=== PATIENT | male | born 1960 | race Caucasian/White ===

== ENCOUNTER 2017-06-21 11:55 | Emergency (ER) | payer MEDICARE, SELFPAY ==
[2017-06-21 12:12] VITALS: BP 157/82; PULSE 68; RESP 22; TEMP 37.3; O2SAT 99; BMI 30.4
--- NOTE | 2017-06-21 12:12 | XR_ITS ---
XR knee RT 3V Ordering Physician: Natali Shepard MD Patient Age: 57 years: Male HISTORY: ITS.REASON: SWOLLEN AND PAINFUL TECHNIQUE: 3 views right knee COMPARISON :None available FINDINGS . No fracture nor dislocation. Bones well mineralized. Scant joint effusion suprapatella bursa. Also suggestion swelling anterior to the patella and patellar tendon. Clinical correlation required. Is evident trauma here? There also appears to be some soft tissue swelling at the insertion of the quadriceps tendon onto the patella.. Is a focal tenderness here? Slight sharpening joint margins but may reflects very subtle early degenerative changes. As does the borderline joint space narrowing at the medial compartment on this nonweightbearing film. Bones well mineralized. IMPRESSION: 1.. No fracture nor dislocation. 2. Is suggestion soft tissue swelling overlying the patella & patellar tendon. Swelling and thickening suggested at the region of quadriceps tendon insertion and superior patella... .. Is a focal tenderness here? Is there history recent trauma?. (If there is focal pain at quadriceps tendon insertion upon patella, orthopedic follow-up with consideration MR a would be important) . 3. Only Scant joint effusion 4. Only scant barely appreciable early degenerative changes knee
[2017-06-21 12:35] VITALS: BP 147/77; PULSE 61; RESP 16; TEMP 37.2; O2SAT 96; BMI 30.4
--- NOTE | 2017-06-21 13:36 | HMH.EDGENADL ---
ED Disposition Clinical Impression: DJD (degenerative joint disease) of knee, Knee effusion, right Disposition: Home, Self-Care Condition on Discharge: Good Additional Instructions: 1- rest. 2- ice. 3- elevation. 4- immobilizer. 5- OTC NSAID 6- See Dr Angeles in AM Referrals: Brandon Angeles MD [Staff Physician] - - Critical Care Critical Care Time: No Attestation: On 06/21/17, the high probability of a clinically significant, sudden or life threatening deterioration of the following system(s) required my full and direct attention, intervention and personal management. The time I documented below is in addition to time spent performing reported procedures but includes the following listed in this critical care notation. Medical Decision Making - Medical Records Medical records reviewed: Yes: I reviewed the patient's medical records. Vital Signs: 06/21/17 12:12 06/21/17 12:35 Temperature 99.1 F 99 F Temperature Source Oral Oral Pulse Rate [Right Brachial] 68 61 Respiratory Rate 22 16 Blood Pressure [Right Arm] 157/82 147/77 Blood Pressure Mean [Right Arm] 107 100 Blood Pressure Source [Right Arm] Automatic Cuff Automatic Cuff Blood Pressure Position [Right Arm] Sitting Supine 02 Sat by Pulse Oximetry 99 96 Oxygen Delivery Method Room Air Room Air - Lab Data Lab Results 06/21/17 14:30: WBC 9.4, RBC 5.17, Hgb 15.3, Hct 45.1, MCV 87.2, MCH 29.7, MCHC 34.0, RDW 12.7, Plt Count 178, MPV 8.7, Neut % (Auto) 71.8, Lymph % (Auto) 19.2, [place] % (Auto) 6.5, Eos % (Auto) 1.7, Baso % (Auto) 0.6, Neut # (Auto) 6.8, Lymph # (Auto) 1.8, [place] # (Auto) 0.6, Eos # (Auto) 0.2, Baso # (Auto) 0.1, ESR 12 06/21/17 14:30: Sodium 139, Potassium 3.8, Chloride 105, Carbon Dioxide 28, Anion Gap 9.8, BUN 10, Creatinine 0.85, Estimated Creat Clear 116, Estimated GFR 93, Est GFR ( Amer) 112, Glucose 93, Uric Acid 6.7, Calcium 8.5, Total Bilirubin 0.5, AST 47 H, ALT 140 H, Alkaline Phosphatase 72, C-Reactive Protein 2.5 H, Total Protein 7.0, Albumin 3.9, Globulin 3.1, Albumin/Globulin Ratio 1.3 Result diagrams: 06/21/17 14:30 06/21/17 14:30 - Radiology Data #1 Image(s): Knee Image Reviewed: Yes I reviewed the patient's radiology image, Yes I have reviewed radiologist's interpretation Preliminary Findings: Abnormal MPRESSION: 1.. No fracture nor dislocation. 2. Is suggestion soft tissue swelling overlying the patella & patellar tendon. Swelling and thickening suggested at the region of quadriceps tendon insertion and superior patella... .. Is a focal tenderness here? Is there history recent trauma?. (If there is focal pain at quadriceps tendon insertion upon patella, orthopedic follow-up with consideration MR a would be important) . 3. Only Scant joint effusion 4. Only scant barely appreciable early degenerative changes knee - Chuck Inquiry Pt receiving controlled substance: No Chuck was queried for this patient: No Medical Decision Making Narrative: I did review the x-ray report below with the patient. MPRESSION: 1.. No fracture nor dislocation. 2. Is suggestion soft tissue swelling overlying the patella & patellar tendon. Swelling and thickening suggested at the region of quadriceps tendon insertion and superior patella... .. Is a focal tenderness here? Is there history recent trauma?. (If there is focal pain at quadriceps tendon insertion upon patella, orthopedic follow-up with consideration MR a would be important) . 3. Only Scant joint effusion 4. Only scant barely appreciable early degenerative changes knee I did review the x-ray report and the labs with the patient and his . He has no signs of infection or uric acid on his lab work. I called Dr. Angeles the orthopedic who recommended symptomatic treatment immobilization and follow-up in office in the morning General Adult HPI - General Chief complaint: PAIN Stated c
--- NOTE | 2017-06-21 13:42 | ED_ITS ---
ED Disposition Clinical Impression: DJD (degenerative joint disease) of knee, Knee effusion, right Disposition: Home, Self-Care Condition on Discharge: Good Additional Instructions: 1- rest. 2- ice. 3- elevation. 4- immobilizer. 5- OTC NSAID 6- See Dr Angeles in AM Referrals: Brandon Angeles MD [Staff Physician] - - Critical Care Critical Care Time: No Attestation: On 06/21/17, the high probability of a clinically significant, sudden or life threatening deterioration of the following system(s) required my full and direct attention, intervention and personal management. The time I documented below is in addition to time spent performing reported procedures but includes the following listed in this critical care notation. Medical Decision Making - Medical Records Medical records reviewed: Yes: I reviewed the patient's medical records. Vital Signs: 06/21/17 12:12 06/21/17 12:35 Temperature 99.1 F 99 F Temperature Source Oral Oral Pulse Rate [Right Brachial] 68 61 Respiratory Rate 22 16 Blood Pressure [Right Arm] 157/82 147/77 Blood Pressure Mean [Right Arm] 107 100 Blood Pressure Source [Right Arm] Automatic Cuff Automatic Cuff Blood Pressure Position [Right Arm] Sitting Supine 02 Sat by Pulse Oximetry 99 96 Oxygen Delivery Method Room Air Room Air - Lab Data Lab Results 06/21/17 14:30: WBC 9.4, RBC 5.17, Hgb 15.3, Hct 45.1, MCV 87.2, MCH 29.7, MCHC 34.0, RDW 12.7, Plt Count 178, MPV 8.7, Neut % (Auto) 71.8, Lymph % (Auto) 19.2 , [place] % (Auto) 6.5, Eos % (Auto) 1.7, Baso % (Auto) 0.6, Neut # (Auto) 6.8, Lymph # (Auto) 1.8, [place] # (Auto) 0.6, Eos # (Auto) 0.2, Baso # (Auto) 0.1, ESR 12 06/21/17 14:30: Sodium 139, Potassium 3.8, Chloride 105, Carbon Dioxide 28, Anion Gap 9.8, BUN 10, Creatinine 0.85, Estimated Creat Clear 116, Estimated GFR 93, Est GFR ( Amer) 112, Glucose 93, Uric Acid 6.7, Calcium 8.5, Total Bilirubin 0.5, AST 47 H, ALT 140 H, Alkaline Phosphatase 72, C-Reactive Protein 2.5 H, Total Protein 7.0, Albumin 3.9, Globulin 3.1, Albumin/Globulin Ratio 1.3 Result diagrams: 06/21/17 14:30 06/21/17 14:30 - Radiology Data #1 Image(s): Knee Image Reviewed: Yes I reviewed the patient's radiology image, Yes I have reviewed radiologist's interpretation Preliminary Findings: Abnormal MPRESSION: 1.. No fracture nor dislocation. 2. Is suggestion soft tissue swelling overlying the patella & patellar tendon. Swelling and thickening suggested at the region of quadriceps tendon insertion and superior patella... .. Is a focal tenderness here? Is there history recent trauma?. (If there is focal pain at quadriceps tendon insertion upon patella, orthopedic follow-up with consideration MR a would be important) . 3. Only Scant joint effusion 4. Only scant barely appreciable early degenerative changes knee - Chuck Inquiry Pt receiving controlled substance: No Chuck was queried for this patient: No Medical Decision Making Narrative: I did review the x-ray report below with the patient. MPRESSION: 1.. No fracture nor dislocation. 2. Is suggestion soft tissue swelling overlying the patella & patellar tendon. Swelling and thickening suggested at the region of quadriceps tendon insertion and superior patella... .. Is a focal tenderness here? Is there history recent trauma?. (If there is focal pain at puneet
[2017-06-21 14:44] LABS: Basophils # 0.1 K/mm3 (0-0.2); Basophils % 0.6 % (0.1-2.0); Eosinophils # 0.2 K/mm3 (0.0-0.4); Eosinophils % 1.7 % (0.1-12.0); Hematocrit 45.1 % (42.0-52.0); Hemoglobin 15.3 g/dL (14.1-18.0); Lymphocytes # 1.8 K/mm3 (0.7-4.5); Lymphocytes % 19.2 K/mm3 (10-50); Mean Corpuscular Hemoglobin 29.7 pg (27.0-31.2); Mean Corpuscular Volume 87.2 fl (80-94); Mean Platelet Volume 8.7 fl (7.4-10.4); Monocytes # 0.6 K/mm3 (0.1-1.0); Monocytes % 6.5 % (1.7-9.3); Neutrophils # 6.8 K/mm3 (1.8-7.8); Neutrophils % 71.8 % (37.0-80.0); Platelet Count 178 K/mm3 (142-424); Red Blood Count 5.17 M/mm3 (4.60-6.20); Red Cell Distribution Width 12.7 % (11.5-17.5); White Blood Count 9.4 K/mm3 (4.8-10.8)
[2017-06-21 14:52] LABS: Alanine Aminotransferase 140 U/L (12-78); Albumin Level 3.9 gm/dL (3.4-5.0); Albumin/Globulin Ratio 1.3 (1.1-1.8); Alkaline Phosphatase 72 U/L (46-116); Anion Gap 9.8 mEq/L (5-15); Aspartate Amino Transferase 47 U/L (15-37); Bilirubin,Total 0.5 mg/dL (0.2-1.0); Blood Urea Nitrogen 10 mg/dL (7-18); C-Reactive Protein 2.5 mg/L (0.0-0.9); Calcium 8.5 mg/dL (8.5-10.1); Carbon Dioxide 28 mmol/L (21.0-32.0); Chloride 105 mmol/L (98-107); Creatinine Clearance Estimated 116 mL/min (0-300); Creatinine,Serum 0.85 mg/dL (0.70-1.30); Estimated Glomerular Filt Rate 93 ml/min (>60); GFR (African American) 112 ML/MIN (>60); Globulin 3.1 gm/dl (1.3-3.2); Glucose 93 mg/dL (74-106); Potassium 3.8 mmoL/L (3.5-5.1); Sodium 139 mmol/L (136-145); Uric Acid 6.7 mg/dL (2.6-7.2)
[2017-06-21 15:28] LABS: Erythrocyte Sedimentation Rate 12 mm/hr (0-20)
[2017-06-21 16:40] VITALS: BP 130/97; PULSE 77; RESP 18; TEMP 37; O2SAT 96
== END 2017-06-21 16:35 | disposition home or self-care (01) ==
LOC: UTC 12:02 → ER 12:21
PROVIDERS: Emergency Provider Emergency Medicine
DX: M17.11 Unilateral primary osteoarthritis, right knee (principal); Z89.212 Acquired absence of left upper limb below elbow; Z79.899 Other long term (current) drug therapy
CPT/HCPCS: 73562; 80053; 84550; 85025; 85651; 86140; 99284

== ENCOUNTER → 2018-07-29 14:09 | Outpatient (CLI) | payer MEDICARE, SELFPAY ==
--- NOTE | 2018-07-29 14:13 | MR_ITS ---
MR shoulder RT wo con COMPARISON: None HISTORY: Right shoulder pain with limited range of motion. Worsening pain ORDERING PHYSICIAN: Constance Estevez PATIENT AGE: 58 years TECHNIQUE: Routine multiplanar multiecho sequences are performed without contrast. FINDINGS: R hypertrophic changes of the acromioclavicular joint with mild hypertrophy along the inferior aspect of the acromion. There is thickening of the supraspinatus tendon with increased T2 signal with focal full-thickness tear of the distal aspect of the supraspinatus tendon. There does appear to be be some intact fibers anteriorly. Subarticular cystic changes are present at the greater tuberosity at the insertion of the supraspinatus tendon. There is edema also the greater tuberosity in this region. The bicipital tendon is in place. No obvious labral tear. The subscapularis and teres minor tendons are intact. No significant effusion. IMPRESSION: 1. Tendinopathy/tendinosis of the supraspinatus tendon with a full-thickness tear distally. The supraspinatus muscle and tendon are not retracted. There does appear to be some intact fibers professionally and anteriorly. 2. Acromioclavicular hypertrophy with impingement upon the musculotendinous junction of the supraspinatus. 3. Subarticular cystic changes of the greater tuberosity with bone marrow edema of the greater tuberosity.
== END ==
PROVIDERS: PCP Nurse Practitioner Family; Visit Provider Nurse Practitioner Family
DX: M25.511 Pain in right shoulder (principal)
CPT/HCPCS: 73221

== ENCOUNTER 2023-07-09 08:31 | Emergency (ER) | payer MEDICARE, MEDICAID, SELFPAY ==
[2023-07-09 08:55] VITALS: BP 125/76; PULSE 103; RESP 19; TEMP 37.6; O2SAT 99; BMI 27.6
[2023-07-09 09:10] LABS: UTC Influenza A Antigen Negative (Negative); UTC Influenza B Antigen Negative (Negative)
--- NOTE | 2023-07-09 09:16 | ED_ITS ---
Discharge Plan Disposition Patient Disposition: Home, Self-Care Condition: Good Prescriptions Prescriptions: New azithromycin [Zithromax Z-Ramesh] 250 mg tablet See Rx Instructions .ROUTE .COMPLEX 5 Days Qty: 6 0RF Rx Instructions: For 250 mg dose pack: take 500 mg today (day 1), then 250 mg for 4 days (days 2-5) benzonatate 100 mg capsule 100 mg PO TID PRN (Reason: cough) Qty: 20 0RF methylprednisolone [Medrol (Ramesh)] 4 mg tablets,dose pack See Rx Instructions .Route .COMPLEX 6 Days Qty: 21 0RF Rx Instructions: taper pack; guaifenesin [Mucinex] 600 mg tablet extended release 12hr 1,200 mg PO BID PRN (Reason: cough) Qty: 20 0RF No Action colchicine 0.6 mg tablet See Rx Instructions .ROUTE .COMPLEX Patient Comments: TAKE 2 TABLETS BY MOUTH INITIALLY, THEN TAKE 1 TABLET IN AN HOUR. Rx Instructions: TAKE 2 TABLETS BY MOUTH INITIALLY, THEN TAKE 1 TABLET IN AN HOUR. ondansetron 4 mg tablet,disintegrating See Rx Instructions .ROUTE .COMPLEX Patient Comments: Place 2 tablets twice a day by translingual route as needed, for nausea. Rx Instructions: Place 2 tablets twice a day by translingual route as needed, for nausea. Referrals Follow up/Referrals: Constance Estevez [Primary Care Provider] - See instructions Activity Restrictions/Add. Instructions Additional Instructions/Restrictions: * Start antibiotic today. Be sure to complete entire prescription even if feeling better * Monitor temp. Tylenol every 4 hours as needed and / or ibuprofen every 6 hours as needed ( As long as your primary care physician has told you that it ok to take both. For fever/aches/pains ER if no less than 101 despite Tylenol or Motrin * Humidifier/vaporizer or hot steamy shower * Mucinex during the day for your cough and cough suppressant only at night. Be sure to drink lots of water. *Tessalon Perles will not cause drowsiness but use at bedtime to help stop cough so that you may get some rest. *Start steroid today. Helps with inflammation therefore, cough and wheezing. Follow directions on the package. Reviewed side effects. Patient reports taking them before. Drink extra fluids with and between meals. If you have difficulty drinking, try very small amounts of water or suck on ice chips. ? Avoid fruit juices, as these do not replace minerals and can actually increase diarrhea. ? Children and adults can use sports drinks to replenish electrolytes. Younger children and infants should use products formulated for children, like oral rehydration solutions. ? Eat food in small amounts and let your stomach recover. ? Get lots of rest. You may feel tired or weak. ? No greasy or fried foods for the next 24-48 hours BRAT diet Bananas Rice Apples and [place] ? Make sure to drink plenty of liquids ? Return if needed ? Straight to ER if any life threatening symptoms ? Zofran as prescribed ? You was given an outpatient order for diarrhea panel, please collect specimen and bring back to outpatient lab then call back to the [facility] or follow up with family doctor for results ? Follow up with family doctor in the next 48-72 hours if no improvement or any worsening of symptoms Follow up IMMEDIATELY for new or worsening of symptoms OR no noticeable improvement over the next 48-72 hours. 911 immediately for any life threatening symptoms such as chest pain or difficulty breathing Clinical Impressions Clinical Impression: Bronchitis Sinusitis Qualifiers: Sinusitis location: unspecified location Chronicity: unspecified Qualified Code(s): J32.9 - Chronic sinusitis, unspecified Instructions Patient Instructions: Diarrhea, Acute Bronchitis, DI for Sinusitis Discharge ED Provider: Anika Lopez [facility] [place] HPI General Stated complaint: cough diarrhea congestion Mode of Arrival: Ambulatory Source of Information: Patient Limitations: No Limitations Time Seen by Provider: 07/09/23 09:16 Description of Symptoms (Recalled from Triage Doc. by RN): Pt's symptoms are chest congestion, diarrhea, cough, and stomach cramps. HEENT Symptoms (Recalled from RN notes): Yes Resp Symptoms (Recalled from RN notes): No Skin Symptoms (Recalled from RN notes): No MS Symptoms (Recalled from RN notes): No Functional Status (Recalled from RN notes): n/a History of Present Illness Provider Complaint: Patient states that he has been having cough, scratchy throat and chest congestion for about a week States earlier in the week he started with diarrhea and seen his PCP and she thought he may have Norovirus But he has continued to have chest congestion and cough and was worried if he didnt get something for it it would get worse Related Data Home Medications Medication Instructions Recorded Confirmed colchicine 0.6 mg tablet See Rx Instructions .Route .COMPLEX 07/09/23 07/09/23 ondansetron 4 mg disintegrating See Rx Instructions .Route .COMPLEX 07/09/23 07/09/23 tablet Previous Rx's Medication Instructions Recorded azithromycin 250 mg tablet See Rx Instructions PO .COMPLEX 5 07/09/23 (Zithromax Z-Ramesh) days #6 tabs benzonatate 100 mg capsule 100 mg PO TID PRN cough #20 caps 07/09/23 guaifenesin 600 mg tablet, 1,200 mg PO BID PRN cough #20 tabs 07/09/23 extended release 12 hr (Mucinex) methylprednisolone 4 mg tablets in See Rx Instructions .Route 07/09/23 a dose pack (Medrol (Ramesh)) .COMPLEX 6 days #21 tabs Allergies Allergy/AdvReac Type Severity Reaction Status Date / Time No Known Allergies Allergy Verified 07/09/23 09:03 Worker's Comp Is this a Worker's Comp case?: No [facility] Disclaimer: The information contained in this section may have been updated after the patient was seen, as this information can be updated by other users. Social History Smoking Status: Never smoker alcohol intake: never current occupational status: employed Travel in the last 8 weeks: None ROS Obtained: Yes All systems reviewed & no additional complaints except as documented and Yes Systems reviewed as appropriate & no additional complaints except as documented Constitutional Constitutional: Reports system reviewed and no additional complaints, except as documented, Reports as per HPI, Reports body ache and Denies chills ENT Ears, Nose, Mouth, and Throat: Reports system reviewed and no additional complaints, except as documented, Reports as per HPI, Reports nasal congestion and Reports sinus pressure Cardiovascular Cardiovascular: Reports system reviewed and no additional complaints, except as documented and Reports as per HPI Respiratory Respiratory: Reports system reviewed and no additional complaints, except as documented, Reports as per HPI, Reports chest congestion, Reports cough and Reports other (at times coughing up some drainage) Gastrointestinal Gastrointestingal: Reports system reviewed and no additional complaints, except as documented, as per HPI, cramping and diarrhea Physical Exam General General appearance: alert and in no apparent distress ENT ENT exam: Present mucous membranes moist Expanded ENT Exam Throat exam: Present other (Pharyngeal erythema noted with PND) Respiratory Respiratory exam: Present normal lung sounds bilaterally; Absent respiratory distress or wheezes Cardiovascular Cardiovascular exam: Present regular rate, normal rhythm and normal heart sounds Abdominal Exam Abdominal exam: Present soft and normal bowel sounds; Absent distention or tenderness Neurological Exam Neurological exam: Present alert, oriented X3 and normal gait Medical Decision Making Chuck Inquiry Pt receiving controlled substance: No Chuck was queried for this patient: No Vital Signs: 07/09/23 08:55 Temperature 99.7 F H Temperature Source Oral Pulse Rate [Right Radial] 103 H Respiratory Rate 19 Blood Pressure [Right Arm] 125/76 Blood Pressure Mean [Right Arm] 92 Blood Pressure Source [Right Arm] Automatic Cuff Blood Pressure Position [Right Arm] Sitting 02 Sat by Pulse Oximetry 99 Oxygen Delivery Method Room Air Lab Data Lab results reviewed: Yes I reviewed the patient's lab results. Lab Results 07/09/23 09:00: Influenza Type A Ag Negative, Influenza Type B Ag Negative
[2023-07-09 09:39] VITALS: BP 125/76; PULSE 103; RESP 19; TEMP 37.6; O2SAT 99
[2023-07-09 09:44] LABS: Adenovirus F 40/41, stool Not Detected (NotDetected); Astrovirus Not Detected (NotDetected); Campylobacter Not Detected (NotDetected); Clostridium Difficile A/B, PCR Not Detected (NotDetected); Cryptosporidium Not Detected (NotDetected); Cyclospora Cayetanesis Not Detected (NotDetected); Entamoeba histolytica Not Detected (NotDetected); Enteroaggregative E coli Not Detected (NotDetected); Enteropathogenic E coli Not Detected (NotDetected); Enterotoxigenic E coli Not Detected (NotDetected); Giardia lamblia Not Detected (NotDetected); Norovirus Not Detected (NotDetected); Plesimonas Shigalloides, PCR Not Detected (NotDetected); Rotavirus A Not Detected (NotDetected); Sapovirus Not Detected (NotDetected); Shiga-like toxin E coli Not Detected (NotDetected); Shigella Enterovasive E coli Not Detected (NotDetected); Vibrio Cholerae Not Detected (NotDetected); Vibrio, PCR Not Detected (NotDetected); Yersinia Entercolitica, PCR Not Detected (NotDetected)
[2023-07-14 10:49] LABS: Salmonella, PCR Detected (NotDetected)
== END 2023-07-09 09:39 | disposition home or self-care (01) ==
PROVIDERS: Emergency Provider Nurse Practitioner; PCP Nurse Practitioner Family
DX: J40 Bronchitis, not specified as acute or chronic (principal); J32.9 Chronic sinusitis, unspecified; R19.7 Diarrhea, unspecified; R05.9 Cough, unspecified; R10.84 Generalized abdominal pain
CPT/HCPCS: 87507; 87804; 99204; 99212; G0463

== ENCOUNTER 2024-07-13 10:38 | Day surgery (SDC) | payer MEDICARE, MEDICAID, SELFPAY ==
[2024-07-12 12:33] VITALS: BMI 28.2
[2024-07-13 10:54] VITALS: BP 150/83; PULSE 69; RESP 18; TEMP 36.6; O2SAT 96
[2024-07-13] MEDS: LACTATED RINGERS 1000ML 1,000 ML 50 ML IV (11:06)
--- NOTE | 2024-07-13 11:10 | EXP.ANES.CKL ---
[facility] Disclaimer: The information contained in this section may have been updated after the patient was seen, as this information can be updated by other users. Medical History Hand amputee Surgical History Hx of appendectomy Social History Smoking Status: Never smoker alcohol intake: never substance use type: denies use current occupational status: employed Travel in the last 8 weeks: None [facility] Anesthesia Checklist Patient Identification Patient Identification: Arm Band Structural Data Admitted From: Home Planned Operative Procedure/s: Colonoscopy Consent for Planned Operative Procedure(s) Verified: Yes Verified Documents: Surgical Consent and History and Physical NPO Status Verified Time NPO: 00:00 Additional verifications Anesthesia Reactions: No Airway Assessment Mallampati Score:: Class II C-Spine Mobility Assessed: Yes TMJ Mobility Assessed: Yes Dentition: Good Dentition Neurological Assessment Level of Consciousness: Awake, Alert and Appropriate Anesthesia Plan Anesthesia Risk discussed: Yes Anesthesia Plan: Verified ASA Class: II Anesthesia Type: MAC
[2024-07-13 11:15] VITALS: O2SAT 99
--- NOTE | 2024-07-13 11:18 | EXP.HP ---
History of Present Illness *Admission Date: 07/13/24 *Reason for visit:: Positive Cologuard *History of present illness: Mr. Garcias is a 64-year-old gentleman who is here for screening colonoscopy secondary to positive Cologuard. The examination is deemed medically necessary for screening colonoscopy. The patient has been seen, interviewed and examined prior to the procedure by both myself and the anesthesia provider. [facility] Disclaimer: The information contained in this section may have been updated after the patient was seen, as this information can be updated by other users. Medical History (Updated 07/13/24 @ 11:19 by Varun Atwood II, MD) Hand amputee Surgical History Hx of appendectomy Social History (Updated 07/13/24 @ 11:11 by Braulio Conway CRNA) Smoking Status: Never smoker alcohol intake: never substance use type: denies use current occupational status: employed Travel in the last 8 weeks: None Have you lived/traveled outside [place] in past 30 days?: No Contact w/someone who lives/traveled outside US past 30 days?: No Exposure to someone with infectious disease in past 14 days?: No Do you have a fever (greater than 100.4 F or 38 C)?: No Have you tested positive for COVID-19: No Exposed to someone with COVID-19 in past 14 days?: No Do you have a sore throat?: No Do you have a cough?: No Do you have any weakness?: No Are you experiencing any nausea/vomitting?: No Do you have any diarrhea?: No Are you experiencing any unusual bleeding?: No Do you have any muscle aches/pain?: No Do you have any abdominal pain?: No Are you experiencing loss of taste or smell?: No Other Medical History Have you received the Flu Vaccine for this season: No Have you received the Pneumonia Vaccine: No Review of Systems Review of Systems Review of systems (narrative): Negative *Cardiovascular Comments: Negative *Gastrointestinal Comments: Negative *Genitourinary Comments: Negative *Musculoskeletal Comments: Negative *Neurologic Comments: Negative Meds Home Medications and Allergies New Prescriptions to Start Prescriptions: Allergies Allergy/AdvReac Type Severity Reaction Status Date / Time No Known Allergies Allergy Verified 07/09/23 09:03 Exam Data for Last 24 hours Vital signs and Labs for Last 24 Hours: Temp Pulse Resp BP Pulse Ox O2 Del Method O2 Flow Rate 98 F 69 18 150/83 H 96 Nasal Cannula 5 07/13/24 10:54 07/13/24 10:54 07/13/24 10:54 07/13/24 10:54 07/13/24 10:54 07/13/24 11:15 07/13/24 11:15 I & O for Last 24 hours: Intake & Output 07/10/24 07/11/24 07/12/24 07/13/24 23:59 23:59 23:59 23:59 Weight 175 lb *Routine HEENT Exam Head: Present normocephalic Eye: Present EOMI and PERRL ENT: Present mucous membranes moist *Routine Neck Exam Neck: Present supple *Routine Respiratory Exam Respiratory: Present CTA bilaterally *Routine Cardiovascular Exam Cardiovascular: Present RRR *Routine Abdominal Exam Abdominal: Present soft and normoactive bowel sounds; Absent tenderness *Routine Rectal Exam Rectal:: deferred *Routine Genitalia Exam Genitalia:: deferred *Routine Extremities Exam Extremities: Absent cyanosis, clubbing or edema *Routine Skin Exam Skin: Present warm; Absent rash *Routine Neurological Exam Neurological: Present alert and oriented X3 Assessment and Plan *Assessment and plan (1) Positive colorectal cancer screening using Cologuard test: Status: Acute Category: Medical Code(s): R19.5 - Other fecal abnormalities Plan A/P: 1. Positive Cologuard is the preprocedural diagnosis. The patient will be anesthetized/sedated using MAC sedation. The patient has been seen and examined. Cardiac and lung assessment prior to the examination is stable. Proceed with planned screening colonoscopy
--- NOTE | 2024-07-13 11:40 | P.PCN_ITS ---
[facility] Procedure Note Date: 07/13/24 Time: 11:40 Procedure Note:: Colonoscopy Procedure Report: Colonoscopy with cold snare polypectomy Endoscopist: Varun Atwood II, MD Referring physician: CHRISTI Merida Date of Procedure: July 13, 2024 Equipment: Olympus 190 variable stiffness pediatric colonoscope Sedation: MAC sedation Indication: Mr. Garcias is a 64-year-old gentleman who is here for screening colonoscopy secondary to a positive Cologuard in April 2024. He reports no abdominal pain, weight loss, rectal bleeding or change in his bowel habits. He does report mostly regular bowel movements but sometimes his bowel movements can be runny and soft. He does state that his sister had advanced colon cancer in her mid to late 60s. This is his first colonoscopy. Procedure: Prior to the procedure, a history and physical exam was performed, and patient's medications and allergies were reviewed. The risks, benefits and alternatives of the sedation and procedure were discussed with the patient. All questions were answered and informed consent was obtained. The patient was brought to the procedure room. Patient identification and proposed procedure were verified by the physician and the nurse. The patient was placed in a left lateral decubitus position and the scope was passed under direct vision. Throughout the procedure, the patient's blood pressure, pulse, and oxygen saturations were monitored continuously. The colonoscopy was accomplished without difficulty. The patient tolerated the procedure well. Findings: On digital rectal examination there was normal rectal tone. There were no external hemorrhoids. The prostate was 2+, smooth, soft, symmetric without nodules. The colonoscope was introduced through the anal canal to the rectum and advanced to the cecum. The ileocecal valve and appendiceal orifice were identified. The scope was advanced a short distance into the ileum which appeared grossly normal. The scope was then withdrawn into the colon. There were 5 colon polyps (ascending x 1 (elongated 13 mm polyp on haustral fold), tra nsverse x 2 (4 and 5 mm), descending x 1 (4 mm) and rectosigmoid x 1 (4 mm)). These were all removed via cold snare polypectomy. The remaining cecum, ascending and transverse colon and mucosa were grossly normal. There were scattered diverticuli throughout the descending and sigmoid colon (LEFT colon). The rectum itself was normal. Upon retroflexion within the rectum there were grade 2 internal hemorrhoids. The preparation was excellent throughout with Canyon Preparation Score of 9. The cecal time was 12 minutes. Impression: 1. Colonic polyps x 5 2. Left-sided diverticulosis 3. Grade 2 internal hemorrhoids Plan: I will follow-up the polyp histology. Based upon the size and number of adenomatous polyps and the patient's family history, I would recommend repeat surveillance colonoscopy in 3 years. I would encourage psyllium bulking fiber supplementation on a maintenance basis.
[2024-07-13 11:43] VITALS: BP 99/62; PULSE 62; RESP 15; TEMP 36.2; O2SAT 94
[2024-07-13 11:53] VITALS: BP 112/67; PULSE 57; RESP 18; O2SAT 94
[2024-07-13 12:03] VITALS: BP 119/65; PULSE 57; RESP 18; O2SAT 95
[2024-07-13 12:30] VITALS: BP 129/77; PULSE 52; RESP 18; O2SAT 95
== END 2024-07-13 12:30 | disposition home or self-care (01) ==
PROVIDERS: PCP Nurse Practitioner Family; Visit Provider Internal Medicine Gastroenterology
PROC: 0DJD8ZZ Inspection of Lower Intestinal Tract, Via Natural or Artificial Opening Endoscopic (ICD-10-PCS; CPT 45378; principal; 2024-07-13 12:30)
DX: R19.5 Other fecal abnormalities (principal); Z12.11 Encounter for screening for malignant neoplasm of colon; Z80.0 Family history of malignant neoplasm of digestive organs; K63.5 Polyp of colon; K57.30 Diverticulosis of large intestine without perforation or abscess without bleeding; K64.1 Second degree hemorrhoids
CPT/HCPCS: 45385; 88305; J7120

== ENCOUNTER 2024-11-27 13:59 | Emergency (ER) | payer MEDICARE, MEDICAID, SELFPAY ==
--- OUTSIDE RECORDS SUMMARY | 2024-11-27 14:06 | XMS_ITS | Continuity of Care Document ---
[facility], [facility] Address [address] [place] [phone] Assessment No assessment recorded. Plan of Treatment Reminders Order Date Submit Date Provider Last Modified By Organization Details Last Modified Time Details Appointments None recorded. Lab None recorded. Referral None recorded. Procedures None recorded. Surgeries None recorded. Imaging None recorded. Medication Orders amoxicillin 500 mg capsule 2024 025 [facility], [address] [place] [address], [id number], 5 17:01:12 promethazin e-DM 6.25 mg-15 mg/5 mL oral syrup 2024 025 [facility], [address] [place] [address], [id number], 5 17:01:12 Patient TargetsNo targets recorded. Patient InstructionsNo instructions recorded. Reason for Referral None Reported. Problems Name Problem SNOMED Code Status Onset Date Resolution Date Notes Provider Name and Address Organization Details Recorded Time Gout 62186480 Active 2022 RONALDO SETHP-BC [address] [place] [address], [phone] , [employer] 3 09:34:39 Elevated blood-pr essure reading without diagnosi s of hyperten linda 187658345 Active 2023 Kareen Robertson NP [address] [place], [address] , [employer] 4 09:32:11 Acute left otitis media 777571800 Active 2024 Constance Estevez, [employer] [address] [place], [address] , [employer]. 5 16:32:51 Body mass index 25-29 - overweig ht 926830976 Active 2024 Constance Estevez, [employer] [address] [place], [address] , [employer]. 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 472674370 Active 2019 Problem Code: M10.071; Problem Code Type: ICD-10; Not Available [facility] 2 22:49:06 Renal colic 2097591 Completed 201706/28/2018 Problem Code: N23; Problem Code Type: ICD-10; Not Available [facility] 2 22:49:07 Acute cystitis 05783438 Completed 201703/24/2020 Problem Code: N30.00; Problem Code Type: ICD-10; Not Available [facility] 2 22:49:07 Prostate specific antigen above referenc e range 213625174 Completed 201707/04/2018 Problem Code: R97.20; Problem Code Type: ICD-10; Not Available [facility] 2 22:49:07 Body mass index 30+ - obesity 104841204 Active 2020 Problem Code: Z68.30; Problem Code Type: ICD-10; Not Available [facility] 2 22:49:08 Influenz a vaccine needed [id number] 06 Completed 201912/09/2021 Problem Code: Z23; Problem Code Type: ICD-10; Constance Estevez APRN [address] [place], [address] , [employer] 11:26:12 Problem Notes None recorded. Procedures Surgical History Date Name Laterality Status Provider Name and Address Organization Details Recorded Time 09/29/19 25 extraction of cataract completed Constance Estevez APRN [address] [place], [address], [employer] 10/12/2024 16:28:59 06/22/19 24 Cerumen Removal completed Constance Estevez APRN [address] [place] [address], [phone], [employer] 06/22/2023 09:46:09 06/17/19 24 Cerumen Removal completed Constance Estevez APRN [address] [place] [address], [phone], [employer] 06/17/2023 18:14:58 appendectomy completed [employer] 09/06/2022 09:24:46 Amputation of forearm completed [employer] 09/06/2022 09:25:03 Imaging Results None recorded. Procedure Notes None recorded. Medical Equipment None Reported. Allergies No known drug allergies Medications Name Sig Start Date Stop Date Status Note LastModified by Organization Details LastModified Time debrox drops 1 2oz INSTILL 5 DROPS INTO AFFECTED EAR(S) BY OTIC ROUTE 2 TIMES PER DAY 07/07 completed Not Available Not Available Not Available amoxicillin 500 mg capsule TAKE ONE CAPSULE BY MOUTH EVERY 8 HOURS FOR 7 DAYS active Not Available Not Available No t Available promethazin e-DM 6.25 mg-15 mg/5 mL oral syrup TAKE 5ml BY MOUTH EVERY 4 HOURS NEEDED FOR cough active Not Available Not Available No t Available azithromyci n 250 mg tablet TAKE 2 TABLETS BY MOUTH ON DAY 1, THEN TAKE 1 TABLET DAILY ON DAYS 2-5 04/19 completed Not Available Not Available Not Available ibuprofen 800 mg tablet 1 tablet by mouth every 8 hours 06/28 completed Not Available Not Available Not Available Debrox 6.5 % ear drops INSTILL 5 DROPS INTO AFFECTED EAR(S) BY OTIC ROUTE 2 TIMES PER DAY 07/07 completed Not Available Not Available Not Available ketorolac 0.5 % eye drops TAKE ONE DROP INTO SURGICAL EYE FOUR TIMES A DAY FOR 7 DAYS, THEN ONE DROP THREE TIMES A DAY FOR 7 DAYS, THEN ONE DROP TWICE A DAY FOR 7 DAYS, THEN ONE DROP ONCE A DAY FOR 7 DAYS active Not Available Not Available No t Available prednisone 10 mg tablets in a dose pack TAKE 6 TABLETS BY MOUTH ON DAY 1, THEN TAKE 5 TABLETS ON DAY 2, THEN TAKE 4 TABLETS ON DAY 3, THEN TAKE 3 TABLETS ON DAY 4, THEN TAKE 2 TABLETS ON DAY 5, THEN TAKE 1 TABLET ON DAY 6. TAKE ALL DOSES WITH FOOD. 06/17 completed Not Available Not Available Not Available prednisolon e acetate 1 % eye drops,suspe nsion TAKE ONE DROP INTO SURGICAL EYE FOUR TIMES A DAY FOR 7 DAYS, THEN ONE DROP THREE TIMES A DAY FOR 7 DAYS, THEN ONE DROP TWICE A DAY FOR 7 DAYS, THEN ONE DROP ONCE A DAY FOR 7 DAYS active Not Available Not Available No t Available benzonatate 100 mg capsule TAKE ONE CAPSULE BY MOUTH THREE TIMES DAILY NEEDED FOR cough -SWALLOW WHOLE. DO NOT CRUSH OR CHEW- 03/31 completed Not Available Not Available Not Available methylpredn isolone 4 mg tablets in a dose pack TAKE ACCORDING TO PACKAGE INSTRUCTI ONS --TAKE WITH FOOD-- -- FINISH ALL MEDICINE -- 03/31 completed Not Available Not Available Not Available colchicine 0.6 mg tablet TAKE 2 TABLETS BY MOUTH INITIALLY , THEN TAKE 1 TABLET IN AN HOUR. 03/31 completed Not Available Not Available Not Available ondansetron 4 mg disintegrat ing tablet Place 2 tablets twice a day by transling ual route as needed, for nausea. 04/19 completed Not Available Not Available Not Available naproxen 500 mg tablet TAKE 1 TABLET BY MOUTH TWICE DAILY WITH FOOD NEEDED FOR PAIN 09/06 completed Not Available Not Available Not Available amoxicillin 875 mg-potassiu m clavulanate 125 mg tablet Take 1 tablet every 12 hours by oral route with meal(s) for 10 days, for ear infection . 07/07 completed Not Available Not Available Not Available Bactrim DS 800 mg-160 mg tablet 1 po bid [email or web address] 06/28 completed Not Available Not Available Not Available moxifloxaci n 0.5 % eye drops INSTILL 1 DROP INTO AFFECTED EYE 4 TIMES DAILY FOR 7 DAYS 10/12 completed Not Available Not Available Not Available Mucus DM Max ER 60 mg-1,200 mg tablet,exte nded release TAKE ONE TABLET BY MOUTH TWICE DAILY 04/19 completed Not Available Not Available Not Available guaifenesin ER 600 mg tablet, extended release 12 hr TAKE TWO TABLETS BY MOUTH TWICE DAILY NEEDED FOR cough 03/31 completed Not Available Not Available Not Available Plenvu 140 gram-9 gram-5.2 gram powder packs AT 6 PM THE EVENING BEFORE COLONOSCO PY TAKE 1ST DOSE FOLLOWED BY [employer] FOLLOWING INSTRUCTI ONS ON KIT. MORNING OF EXAM TAKE THE SECOND DOSAGE FOLLOWED BY [employer] 10/12 completed Not Available Not Available Not Available Paxlovid 300 mg (150 mg x 2)-100 mg tablets in a dose pack DIRECTED ON PACKAGE 09/06 completed Not Available Not Available Not Available Vitals Date Recorded Body height Body mass index (BMI) Body weight Heart rate Oxygen saturation Oxygen saturation in Arterial blood by Pulse oximetry Systolic blood pressure Diastolic blood pressure Provider Name and Address Organization Details Last Updated DateTime 167.64 cm 28.2 kg/m2 23894.6 6 g 83 /min 97 % 97 % 139 mm[Hg] 88 mm[Hg] Jeimy Riggs [employer] 16:25:58 Social History Question Answer Notes LastModified by Organizat ion Details LastModified Time Tobacco Smoking Status Former Smoker KASSY armando [employer] 09/06/2022 09:23:23 Is Your Home Air Conditioned? Yes [email or web address] Information not available 09/06/2022 Do You Wear A Helmet When Biking? No [email or web address] Information not available 03/31/2024 Are You Blind Or Do You Have Difficulty Seeing? No [email or web address] Information n ot available 03/31/2024 What Is Your Level Of Caffeine Consumption? Moderate [email or web address] Information not available 09/06/2022 Are You A Caregiver? No [email or web address] Information not available 09/06/2022 In The 14 Days Before Symptom Onset, Have You Had Close Contact With A Laboratory-confirm ed COVID-19 While That Case Was Ill? No Information n ot available 06/17/2023 In The 14 Days Before Symptom Onset, Have You Had Close Contact With A Person Who Is Under Investigation For COVID-19 While That Person Was Ill? No Information not available 06/17/2023 Have You Been To An Area Known To Be High Risk For COVID-19? No [email or web address] Information not available 09/06/2022 Are You Deaf Or Do You Have Serious Difficulty Hearing? No Information not available 03/31/2024 What Type Of Diet Are You Following? REGULAR Information n ot available 06/17/2023 Have There Been Any Changes To Your Family Or Social Situation? No [email or web address] Information no t available 09/06/2022 When Did You Quit Smoking? 16+yearssince lastcigarette [email or web address] Information not available 09/06/2022 What Was The Date Of Your Most Recent Tobacco Screening? 04/19/2024 Information not available 04/19/2024 What Is Your Current Pack Years? 30ormorepacky ears [email or web address] Information not available 09/06/2022 What Is Your Relationship Status? Information not available 09/06/2022 Do You Use Your Seat Belt Or Car Seat Routinely? Yes Information not available 06/17/2023 Are You Sexually Active? No [email or web address] Information not available 03/31/2024 Do You Have Smoke And Carbon Monoxide Detectors In Your Home? Yes Information not available 09/06/2022 Are You Passively Exposed To Smoke? No [email or web address] Information no t available 09/06/2022 Are There Any Smokers In Your House? No [email or web address] Information not available 09/06/2022 Do You Participate In Social Media? Yes [email or web address] Information not available 03/31/2024 Have You Recently Traveled Abroad? No [email or web address] Information not available 09/06/2022 Do You Have Difficulty Walking Or Climbing Stairs? No [email or web address] Information not available 03/31/2024 Are You Currently In School? No [email or web address] Information not available 09/06/2022 Do You Have Any Dietary Restrictions? No Information not available 06/17/2023 Sex: Male Functional Status Question Answer Note LastModified by Organizat ion Details LastModified Time Do you use any illicit or recreational drugs? No [email or web address] Information not available 09/06/2022 Do you or have you ever used any other forms of tobacco or nicotine? No [email or web address] Information not available 09/06/2022 What is your level of alcohol consumption? None [email or web address] Information not available 09/06/2022 Are you currently employed? No [email or web address] Information not available 09/06/2022 Do you have transportation difficulties? No [email or web address] Information not available 03/31/2024 Are you able to walk? YESWOREST [email or web address] Information not available 03/31/2024 Do you have difficulty doing errands alone? No [email or web address] Information not available 03/31/2024 Are you able to care for yourself? Yes [email or web address] Information not available 03/31/2024 Do you have difficulty dressing or bathing? No Information not available 03/31/2024 Mental Status Question Answer Note LastModified by Organizat ion Details LastModified Time Do you feel stressed (tense, restless, nervous, or anxious, or unable to sleep at night)? HR9425-0 [email or web address] Information not available 03/31/2024 Do you have difficulty concentrating, remembering or making decisions? No Information no t available 03/31/2024 Family History Relationship Description Onset Age of this Age Resolved Age Notes LastModified by Organization Details LastModified Time Father Family history of Myocardial infarction [email or web address] Not available 09:22:48 Mother Cerebrovascu lar accident [email or web address] Not available 09/06/2022 09:22:55 Medical History Condition Response ADD/ADHD N Kidney Stones Y Hospitalizations N Acid Reflux (GERD) N Emergency room visit since last appointm ent. N Abuse/Domestic Violence N Immunizations Vaccine Type Date Status Note Provider Nam e and Address Organization Details Recorded Time Influenza, split virus, quadrivalent, PF completed Not Available [facility] 02/04/2022 22:59:18 Influenza, split virus, quadrivalent, preservative 0 completed Not Available [facility] 02/04/2022 22:59:19 RSV, recombinant, protein subunit RSVpreF, adjuvant reconstituted, 0.5 mL, PF 4 completed Oksana Anderson, BRITANY [address] [place], [address], [employer] 08/14/2023 10:58:53 influenza, unspecified formulation 4 completed IVELISSE armando, [employer] 04/19/2024 11:40:03 SARS-COV-2 (COVID-19) vaccine, UNSPECIFIED 4 completed IVELISSE ENCISO null, [employer] 04/19/2024 11:41:19 COVID-19, mRNA, LNP-S, PF, 100 mcg/0.5mL dose or 50 mcg/0.25mL dose 1 completed Not Available [facility] 10/12/2024 16:10:55 COVID-19, mRNA, LNP-S, PF, 100 mcg/0.5mL dose or 50 mcg/0.25mL dose 1 completed Not Available [facility] 10/12/2024 16:10:55 COVID-19, mRNA, LNP-S, PF, 100 mcg/0.5mL dose or 50 mcg/0.25mL dose 1 completed Not Available [facility] 10/12/2024 16:10:55 COVID-19, mRNA, LNP-S, PF, 100 mcg/0.5mL dose or 50 mcg/0.25mL dose 2 completed Not Available [facility] 10/12/2024 16:10:55 COVID-19, mRNA, LNP-S, bivalent, PF, 30 mcg/0.3 mL dose 2 completed Not Available [facility] 10/12/2024 16:10:55 Influenza, split virus, quadrivalent, PF 2 completed Not Available [facility] 10/12/2024 16:10:55 COVID-19, mRNA, LNP-S, PF, 50 mcg/0.5 mL 3 completed Not Available [facility] 10/12/2024 16:10:55 Influenza, split virus, quadrivalent, PF 3 completed Not Available [facility] 10/12/2024 16:10:55 Past Encounters Encounter ID Performer Location Encounter Start Date Encounter Closed Date Diagnosis/Indication Diagnosis SNOMED-CT Code Diagnosis ICD10 Code Diagnosis Note [id number] Constance EstevezBRITANY [address] [address] 10/12/2024 16:10:11 10/12/2024 16:57:23 Acute left otitis media 797851163 H66.92 Patient presents with signs/symp toms of otitis media. Will treat as below. Supportive care reviewed: humidifier use, raise HOB, saline nasal spray, encourage PO fluids. Recommende d acetaminop hen/ibupro fen PRN pain/fever Follow up as below. Body mass index 25-29 - overweight 818760058 E66.3 Health Concerns Section Related Observation LastModified by Organization Detai ls LastModified Time None Recorded Concern Status LastModified by Organization Details LastModified Time None Recorded Payers Encounter Date Sequence Insurance Name Policy Number Policy Hall Covered Member ID Hall Member ID Guarantor Name 10/12/2024 1 [place] Kemar Garcias [id number] Kemar Garcias 10/12/2024 2 [place] [employer] [place]/TRADITIO NAL Kemar Garcias [id number] Kemar Garcias Notes Date Note Type Note Provider Name and Address Organization Details Recorded Time 10/12/2024 text/html Ear Pain Brief HPIReported bypatient.Location:claudia n radiates to; left Onset/Timing:new onset; started 3days ago; intermittent pain; gradual onset Duration:sensation/epi sode variable length Quality:no itching; no discharge from the ears; no burning;dull pain Severity:moderate pain;fever;interferes with daily activities;interferes with ability to sleep Context:no recent trauma; no recent ear infection; no recent swimming; no dental problems; no recent airplane travel; no scuba diving; non-smoker;recent URI; seasonal allergic rhinitis Alleviating factors:NSAIDs Associated Symptoms:no vertigo; no jaw popping or clicking; no temporomandibular joint disease; no discharge from ear; no dental pain; no jaw pain; no tinnitus;nasal congestion;nasal discharge;sense of fullness/pressure;sore throat;decreased hearing;muffled hearing Constance Estevez APRN [address] [place], [address], [facility] [employer] 10/13/2024 12:51:34
--- OUTSIDE RECORDS SUMMARY | 2024-11-27 14:06 | XMS_ITS | Data Portability ---
Author Organization [employer] [facility] Address [address] [place] [address] Assessment Encounter Date Assessment Date Assessment LastModified by Organization Details LastModified Time 03/31/2024 03/31/2024 Medication as prescribed. Increase oral fluids. Keep log of blood pressure of the next two weeks and then follow up with PCP for recheck. Discussed symptoms that would warrant ER evaluation, patient asymptomatic today. Follow up if no improvement or worsening and as needed. Not available 03/31/2024 09:39:40 04/19/2024 04/19/2024 Patient presente d to office today for their Medicare Annual Wellness Visit. Education was provided on healthy nutrition, including a diet rich in fruits and vegetables, minimizing simple carbohydrates, salt, and saturated fats. Encouraged regular cardiovascular exercise such as walking at least 30 minutes daily, 5 times per week. Emphasized preventive health measures and educated pt on fall prevention and community-based lifestyle interventions to help reduce health risks and promote healthy living. Not available 04/19/2024 11:27:33 Plan of Treatment Reminders Order Date Submit Date Provider Last Modified By Organization Details Last Modified Time Details Appointments None recorded. Lab PSA, total, serum or plasma 2023 024 SOREN [facility] ([place]), [address] [place] [address], [place], [address], 08:13:40 noninvasive colorectal cancer DNA + occult blood screening, QL, stool 2023 024 [facility] (Cologuard Orders Only), [address], [address], [place], [address], 4 18:37:46 CBC w/ auto diff 2023 024 [facility] [place] [place], [address], 4 08:13:38 CMP, serum or plasma 2023 024 [facility] [place] [place], [address], 4 08:13:39 rapid SARS CoV 2 Ag, QL, IA, upper respiratory specimen 2023 024 [facility], [address] [place] [address], [address], 4 09:46:50 rapid flu (A+B) 2023 024 [facility], [address] [place] [address], [address], 4 09:46:44 Referral None recorded. Procedures None recorded. Surgeries None recorded. Imaging None recorded. Medication Orders amoxicillin 500 mg capsule 2024 025 [facility], [address] [place] [address], [address], 5 17:01:12 promethazin e-DM 6.25 mg-15 mg/5 mL oral syrup 2024 025 [facility], [address] [place] [address], [address], 5 17:01:12 Zithromax Z-Ramesh 250 mg tablet 2023 024 [facility], [address] [place] [address], [address], 4 11:32:55 Mucinex DM 60 mg-1,200 mg tablet,exte nded release 12 hr 2023 [facility], [address] [place] [address], [address], 11:32:56 ondansetron 4 mg disintegrat ing tablet 2023 [facility], [address] [place] [address], [address], 11:36:46 Patient TargetsNo targets recorded. Patient Instructions Encounter Date Encounter Id Patient Instructions Last Modified By Organization Details Last Modified Time 03/31/2024 [id number] weight managemen t education Not available 03/31/2024 09:32:59 learning about healthy weight Not available 03/31/2024 09:32:59 04/19/2024 [id number] advance care planning: care instructions Not available 04/19/2024 11:27:51 Discussed and explained advance directives such as standard forms to the patient. Face to face discussion lasted for a duration of _3__ minutes. Not available 04/19/2024 11:35:29 Reason for Referral None Reported. Results Created Date Observation Date Name Description Value Unit Range Abnormal Flag Note LastModifiedBy Organization Detail LastModifiedTime 07/07/19 24 07/07/2023 rapid flu (A+B) Flu A negati ve Not Available [address], [address], 07/07/2023 09:32:37 07/07/19 24 07/07/2023 rapid flu (A+B) Flu B negati ve Not Available [address], [address], 07/07/2023 09:32:37 07/07/19 24 07/07/2023 rapid SARS CoV 2 Ag, QL, IA, upper respi rator y speci men SARS CoV Ag negati ve Not Available [address], [place], [address], 07/07/2023 09:32:29 04/19/20 24 04/20/2024 CBC WITH DIFFE RENTI AL/PL ATELE T WBC 5.7 x10e3 /uL 3.4-10 .8 normal Eff ectiv e Decem piedad 2023 [place] [id number] 5 WBC will be made* * non-o rdera ble as a stand -mario e order code. Not Available [facility] ([facility]) [address] [place], [address], 04/20/2024 08:13:38 04/19/20 24 04/20/2024 CBC WITH DIFFE RENTI AL/PL ATELE T RBC 5.65 x10e6 /uL 4.14-5 .80 normal Not Available [facility] ([facility]) [address] [place], [address], 04/20/2024 08:13:38 04/19/20 24 04/20/2024 CBC WITH DIFFE RENTI AL/PL ATELE T hemoglobin 16.5 g/dL 13.0-1 7.7 normal Not Available [facility] ([facility]) [address] [place], [address], 04/20/2024 08:13:38 04/19/20 24 04/20/2024 CBC WITH DIFFE RENTI AL/PL ATELE T hematocrit 49.3 % 37.5-5 1.0 normal Not Available [facility] ([facility]) [address] [place], [address], 04/20/2024 08:13:38 04/19/20 24 04/20/2024 CBC WITH DIFFE RENTI AL/PL ATELE T MCV 87 fL 79-97 normal Not Available [facility] ([facility]) [address] [place], [address], 04/20/2024 08:13:38 04/19/20 24 04/20/2024 CBC WITH DIFFE RENTI AL/PL ATELE T MCH 29.2 pg 26.6-3 3.0 normal Not Available [facility] ([facility]) [address] [facility], [place], [address], 04/20/2024 08:13:38 04/19/20 24 04/20/2024 CBC WITH DIFFE RENTI AL/PL ATELE T MCHC 33.5 g/dL 31.5-3 5.7 normal Not Available [facility] ([facility]) [address] [place], [address], 04/20/2024 08:13:38 04/19/20 24 04/20/2024 CBC WITH DIFFE RENTI AL/PL ATELE T RDW 12.7 % 11.6-1 5.4 Not Available [facility] ([facility]) [address] [facility], [place], [address], 04/20/2024 08:13:38 04/19/20 24 04/20/2024 CBC WITH DIFFE RENTI AL/PL ATELE T platelets 210 x10e3 /uL 150-45 0 normal Not Available [facility] ([facility]) [address] [facility], [place], [address], 04/20/2024 08:13:38 04/19/20 24 04/20/2024 CBC WITH DIFFE RENTI AL/PL ATELE T neutrophils 49 % not estab. normal Not Available [facility] ([facility]) [address] [place], [address], 04/20/2024 08:13:38 04/19/20 24 04/20/2024 CBC WITH DIFFE RENTI AL/PL ATELE T lymphs 40 % not estab. normal Not Available [facility] ([facility]) [address] [place], [address], 04/20/2024 08:13:38 04/19/20 24 04/20/2024 CBC WITH DIFFE RENTI AL/PL ATELE T monocytes 7 % not estab. normal Not Available [facility] ([facility]) [address] [facility], [place], [address], 04/20/2024 08:13:38 04/19/20 24 04/20/2024 CBC WITH DIFFE RENTI AL/PL ATELE T eos 3 % not estab. normal Not Available [facility] ([facility]) [address] [facility], [place], [address], 04/20/2024 08:13:38 04/19/20 24 04/20/2024 CBC WITH DIFFE RENTI AL/PL ATELE T basos 1 % not estab. normal Not Available [facility] ([facility]) [address] [facility], [place], [address], 04/20/2024 08:13:38 04/19/20 24 04/20/2024 CBC WITH DIFFE RENTI AL/PL ATELE T immature cells ABALONE DIVER Not Available [facility] ([facility]) [address] [place], [address], 04/20/2024 08:13:38 04/19/20 24 04/20/2024 CBC WITH DIFFE RENTI AL/PL ATELE T neutrophils (absolute) 2.8 x10e3 /uL 1.4-7. 0 normal Not Available [facility] ([facility]) [address] [place], [address], 04/20/2024 08:13:38 04/19/20 24 04/20/2024 CBC WITH DIFFE RENTI AL/PL ATELE T lymphs (absolute) 2.3 x10e3 /uL 0.7-3. 1 normal Not Available [facility] ([facility]) [address] [place], [address], 04/20/2024 08:13:38 04/19/20 24 04/20/2024 CBC WITH DIFFE RENTI AL/PL ATELE T monocytes(ab solute) 0.4 x10e3 /uL 0.1-0. 9 normal Not Available [facility] ([facility]) [address] [facility], [place], [address], 04/20/2024 08:13:38 04/19/20 24 04/20/2024 CBC WITH DIFFE RENTI AL/PL ATELE T eos (absolute) 0.2 x10e3 /uL 0.0-0. 4 normal Not Available [facility] ([facility]) [address] [facility], [place], [address], 04/20/2024 08:13:38 04/19/20 24 04/20/2024 CBC WITH DIFFE RENTI AL/PL ATELE T baso (absolute) 0.1 x10e3 /uL 0.0-0. 2 normal Not Available [facility] ([facility]) [address] [facility], [place], [address], 04/20/2024 08:13:38 04/19/20 24 04/20/2024 CBC WITH DIFFE RENTI AL/PL ATELE T immature granulocytes 0 % not estab. Not Available [facility] ([facility]) [address] [facility], [place], [address], 04/20/2024 08:13:38 04/19/20 24 04/20/2024 CBC WITH DIFFE RENTI AL/PL ATELE T immature grans (abs) 0.0 x10e3 /uL 0.0-0. 1 Not Available [facility] ([facility]) [address] [place], [address], 04/20/2024 08:13:38 04/19/20 24 04/20/2024 CBC WITH DIFFE RENTI AL/PL ATELE T NRBC ABALONE DIVER Not Available [facility] ([facility]) [address] [place], [address], 04/20/2024 08:13:38 04/19/20 24 04/20/2024 CBC WITH DIFFE RENTI AL/PL ATELE T hematology comments: ABALONE DIVER Not Available [facility] ([facility]) [address] [facility], [place], [address], 04/20/2024 08:13:38 04/19/20 24 04/20/2024 COMP. METAB OLIC PANEL (14) glucose 87 mg/dL 70-99 normal Not Available [facility] ([facility]) [address] [facility], [place], [address], 04/20/2024 08:13:39 04/19/20 24 04/20/2024 COMP. METAB OLIC PANEL (14) BUN 12 mg/dL 8-27 normal Not Available [facility] ([facility]) [address] [facility], [place], [address], 04/20/2024 08:13:39 04/19/20 24 04/20/2024 COMP. METAB OLIC PANEL (14) creatinine 1.19 mg/dL 0.76-1 .27 normal Not Available [facility] ([facility]) [address] [facility], [place], [address], 04/20/2024 08:13:39 04/19/20 24 04/20/2024 COMP. METAB OLIC PANEL (14) eGFR 68 mL/mi n/1.7 3 >59 normal Not Available [facility] ([facility]) [address] [facility], [place], [address], 04/20/2024 08:13:39 04/19/20 24 04/20/2024 COMP. METAB OLIC PANEL (14) BUN/creatini ne ratio 10 10-24 normal Not Available [facility] ([facility]) [address] [facility], [place], [address], 04/20/2024 08:13:39 04/19/20 24 04/20/2024 COMP. METAB OLIC PANEL (14) sodium 143 mmol/ L 134-14 4 normal Not Available [facility] ([facility]) [address] [facility] [place], [address], 04/20/2024 08:13:39 04/19/20 24 04/20/2024 COMP. METAB OLIC PANEL (14) potassium 4.3 mmol/ L 3.5-5. 2 normal Not Available [facility] ([facility]) [address] [facility] [place], [address], 04/20/2024 08:13:39 04/19/20 24 04/20/2024 COMP. METAB OLIC PANEL (14) chloride 103 mmol/ L 96-106 normal Not Available [facility] ([facility]) [address] [facility] [place], [address], 04/20/2024 08:13:39 04/19/20 24 04/20/2024 COMP. METAB OLIC PANEL (14) carbon dioxide, total 25 mmol/ L 20-29 normal Not Available [facility] ([facility]) [address] [facility] [place], [address], 04/20/2024 08:13:39 04/19/20 24 04/20/2024 COMP. METAB OLIC PANEL (14) calcium 9.9 mg/dL 8.6-10 .2 normal Not Available [facility] ([facility]) [address] [facility] [place], [address], 04/20/2024 08:13:39 04/19/20 24 04/20/2024 COMP. METAB OLIC PANEL (14) protein, total 7.2 g/dL 6.0-8. 5 normal Not Available [facility] ([facility]) [address] [facility] [place], [address], 04/20/2024 08:13:39 04/19/20 24 04/20/2024 COMP. METAB OLIC PANEL (14) albumin 4.6 g/dL 3.9-4. 9 normal Not Available [facility] ([facility]) [address] [place], [address], 04/20/2024 08:13:39 04/19/20 24 04/20/2024 COMP. METAB OLIC PANEL (14) globulin, total 2.6 g/dL 1.5-4. 5 Not Available [facility] ([facility]) [address] [place], [address], 04/20/2024 08:13:39 04/19/20 24 04/20/2024 COMP. METAB OLIC PANEL (14) bilirubin, total 0.6 mg/dL 0.0-1. 2 normal Not Available [facility] ([facility]) [address] [place], [address], 04/20/2024 08:13:39 04/19/20 24 04/20/2024 COMP. METAB OLIC PANEL (14) alkaline phosphatase 71 IU/L 44-121 normal Not Available [facility]) [address] [place], [address], 04/20/2024 08:13:39 04/19/20 24 04/20/2024 COMP. METAB OLIC PANEL (14) AST (SGOT) 25 IU/L 0-40 normal Not Available [facility] ([facility]) [address] [place], [address], 04/20/2024 08:13:39 04/19/20 24 04/20/2024 COMP. METAB OLIC PANEL (14) ALT (SGPT) 27 IU/L 0-44 normal Not Available [facility] ([facility]) [address] [place], [address], 04/20/2024 08:13:39 04/19/20 24 04/20/2024 PROST ATE-S PECIF IC AG prostate specific Ag 0.9 NG/mL 0.0-4. 0 normal Jim ECLIA metho dolog y. Accor ding to the Ameri can Urolo gical Assoc iatio n, Serum PSA shoul d decre ase and remai n at undet ectab le level s after radic al prost atect hammad. The AUA defin es bioch emica l recur rence as an initi al PSA value 0.2 ng/mL or great er follo wed by a subse quent confi rmato ry PSA value 0.2 ng/mL or great er. Value s obtai solomon with diffe rent assay metho ds or kits canno t be used inter hutton eably . Resul ts canno t be inter prete d as absol diamond evide nce of the prese nce or absen ce of [facility] se. Not Available [facility] ([facility]) [address] [facility], [place], [address], 04/20/2024 08:13:40 04/25/20 24 04/25/2024 nonin vasiv e color ectal cance r DNA + occul t blood scree jing, QL, stool fit DNA positi ve abnormal Not Available [facility] ([facility]ard Orders Only) [address], [place], [address], 05/03/2024 18:13:48 Result Notes None recorded. Problems Name Problem SNOMED Code Status Onset Date Resolution Date Notes Provider Name and Address Organization Details Recorded Time Gout 24151843 Active 2022 JO ANN SAAVEDRA, NEON SIGN MECHANIC-BC [address] [place], [address] , [employer] 3 09:34:39 Elevated blood-pr essure reading without diagnosi s of hyperten linda 538978802 Active 2023 Kareen Robertson, LIZ [address] [place], [address] , [employer] 4 09:32:11 Acute left otitis media 147960859 Active 2024 Constance Estevez APRN [address] [place], [address] , [employer] 5 16:32:51 Body mass index 25-29 - overweig ht 106031073 Active 2024 Constance Estevez, BRITANY [address] [place], [address] , [employer] 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 954338813 Active 2019 Problem Code: M10.071; Problem Code Type: ICD-10; Not Available [facility] 2 22:49:06 Renal colic 8683366 Completed 201706/28/2018 Problem Code: N23; Problem Code Type: ICD-10; Not Available [facility] 2 22:49:07 Acute cystitis 68665457 Completed 201703/24/2020 Problem Code: N30.00; Problem Code Type: ICD-10; Not Available [facility] 2 22:49:07 Prostate specific antigen above referenc e range 924888119 Completed 201707/04/2018 Problem Code: R97.20; Problem Code Type: ICD-10; Not Available [facility] 2 22:49:07 Body mass index 30+ - obesity 878222918 Active 2020 Problem Code: Z68.30; Problem Code Type: ICD-10; Not Available [facility] 2 22:49:08 Influenz a vaccine needed 11463572093 06 Completed 201912/09/2021 Problem Code: Z23; Problem Code Type: ICD-10; Constance Estevez APRN [address] [place], [address] , [employer] 4 11:26:12 Problem Notes None recorded. Procedures Surgical History Date Name Laterality Status Provider Name and Address Organization Details Recorded Time 09/29/19 25 extraction of cataract completed Constance EstevezBHARTIN [address] [place], [address], [employer] 10/12/2024 16:28:59 06/22/19 24 Cerumen Removal completed Constance Herb FRUIT TESTER [address] [place], [address], [employer] 06/22/2023 09:46:09 06/17/19 24 Cerumen Removal completed Constancerajendra Estevez APRN [address] [place], [address], [employer] 06/17/2023 18:14:58 appendectomy completed [employer] 09/06/2022 09:24:46 Amputation of forearm completed [employer] 09/06/2022 09:25:03 Imaging Results None recorded. [...] 800 mg-160 mg tablet 1 po bid [id number] 06/28 completed Not Available Not Available Not [...] height Body mass index (BMI) Body weight Body temperature Heart rate Oxygen saturation Oxygen saturation in Arterial blood by Pulse oximetry Systolic blood pressure Diastolic blood pressure Provider Name and Address Organization Details Last Updated DateTime 4 167.64 cm 29.1 kg/m2 45074.7 8 g 101.1 [degF] 104 /min 93 % 93 % 104 mm[Hg] 67 mm[Hg] IVELISSE ENCISO [employer] 4 09:32:20 Date Recorded Body height Body mass index (BMI) Body weight Heart rate Oxygen saturation Oxygen saturation in Arterial blood by Pulse oximetry Systolic blood pressure Diastolic blood pressure Provider Name and Address Organization Details Last Updated DateTime 5 167.64 cm 28.2 kg/m2 84547.6 6 g 83 /min 97 % 97 % 139 mm[Hg] 88 mm[Hg] Jeimy Riggs [employer], [employer]. 5 16:25:58 Date Recorded Body height Body mass index (BMI) Body weight Body temperature Heart rate Oxygen saturation Oxygen saturation in Arterial blood by Pulse oximetry Systolic blood pressure Diastolic blood pressure Systolic blood pressure Diastolic blood pressure Systolic blood pressure Diastolic blood pressure Provider Name and Address Organization Details Last Updated DateTime 4 167.64 cm 28.3 kg/m2 80480.4 6 g 98.2 [degF] 64 /min 95 % 95 % 175 mm[Hg] 88 mm[Hg] 167 mm[Hg] 88 mm[Hg] 165 mm[Hg] 88 mm[Hg] Lucero Alfredo [employer] 4 09:19:53 Date Recorded Body height Body mass index (BMI) Body weight Body temperature Heart rate Oxygen saturation Oxygen saturation in Arterial blood by Pulse oximetry Systolic blood pressure Diastolic blood pressure Provider Name and Address Organization Details Last Updated DateTime 4 167.64 cm 28.6 kg/m2 37707.8 5 g 97.7 [degF] 61 /min 98 % 98 % 131 mm[Hg] 64 mm[Hg] IVELISSE FERNIE [employer] 4 11:24:54 Social History Question Answer Notes LastModified by Organizat ion Details LastModified Time Tobacco Smoking Status Former Smoker KASSY MINA [employer] 09/06/2022 09:23:23 Is Your Home Air Conditioned? Yes [email or web address] Information not available 09/06/2022 Do You Wear A Helmet When Biking? No [email or web address] Information not available 03/31/2024 Are You Blind Or Do You Have Difficulty Seeing? No [email or web address] Information n ot available 03/31/2024 What Is Your Level Of Caffeine Consumption? Moderate [email or web address] Information not available 09/06/2022 Are You A Caregiver? No [email or web address] Information not available 09/06/2022 In The 14 [...] To Be High Risk For COVID-19? No [email or web address] Information not available 09/06/2022 Are You Deaf Or Do You Have Serious Difficulty Hearing? No [email or web address] Information not available 03/31/2024 What Type Of Diet Are You Following? REGULAR Information n ot available 06/17/2023 Have There Been Any Changes To Your Family Or Social Situation? No [email or web address] Information no t available 09/06/2022 When Did You Quit Smoking? 16+yearssince lastcigarette Information not available 09/06/2022 What Was The Date Of Your Most Recent Tobacco Screening? 04/19/2024 Information not available 04/19/2024 What Is Your Current Pack Years? 30ormorepacky ears [email or web address] Information not available 09/06/2022 What Is Your Relationship Status? [email or web address] Information not available 09/06/2022 Do You Use Your Seat Belt Or Car Seat Routinely? Yes Information not available 06/17/2023 Are You Sexually Active? No Information not available 03/31/2024 Do You Have Smoke And Carbon Monoxide Detectors In Your Home? Yes [email or web address] Information not available 09/06/2022 Are You Passively Exposed To Smoke? No [email or web address] Information no t available 09/06/2022 Are There Any Smokers In Your House? No [email or web address] Information not available 09/06/2022 Do You Participate In Social Media? Yes Information not available 03/31/2024 Have You Recently Traveled Abroad? No Information not available 09/06/2022 Do You Have Difficulty Walking Or Climbing Stairs? No Information not available 03/31/2024 Are You Currently In School? No [email or web address] Information not available 09/06/2022 Do You Have Any Dietary Restrictions? No Information not available 06/17/2023 Sex: Male Functional Status Question Answer Note LastModified by Organizat ion Details LastModified Time Do you use any illicit or recreational drugs? No [email or web address] Information not available 09/06/2022 Do you or have you ever used any other forms of tobacco or nicotine? No [email or web address] Information not available 09/06/2022 What is your level of alcohol consumption? None [email or web address] Information not available 09/06/2022 Are you currently employed? No [email or web address] Information not available 09/06/2022 Do you have transportation difficulties? No [email or web address] Information not available 03/31/2024 Are you able to walk? [email or web address] Information not available 03/31/2024 Do you have difficulty doing errands alone? No Information not available 03/31/2024 Are you able to care for yourself? Yes [email or web address] Information not available 03/31/2024 Do you have difficulty dressing or bathing? No [email or web address] Information not available 03/31/2024 Mental Status Question Answer Note LastModified by Organizat ion Details LastModified Time Do you feel stressed (tense, restless, nervous, or anxious, or unable to sleep at night)? [id number] [email or web address] Information not available 03/31/2024 Do you have difficulty concentrating, remembering or making decisions? No [email or web address] Information no t available 03/31/2024 Family History Relationship Description Onset Age of this Age Resolved Age Notes LastModified by Organization Details LastModified Time Father Family history of Myocardial infarction [email or web address] Not available 09:22:48 Mother Cerebrovascu lar accident [email or web address] Not available 09/06/2022 09:22:55 Medical History Condition Response ADD/ADHD N Kidney Stones Y Hospitalizations N Acid Reflux (GERD) N Emergency room visit since last appointm ent. N Abuse/Domestic Violence N Immunizations Vaccine Type Date Status Note Provider Nam e and Address Organization Details Recorded Time Influenza, split virus, quadrivalent, PF 1 completed Not Available [facility] 02/04/2022 22:59:18 Influenza, split virus, quadrivalent, preservative 0 completed Not Available [facility] 02/04/2022 22:59:19 RSV, recombinant, protein subunit RSVpreF, adjuvant reconstituted, 0.5 mL, PF 4 completed Oksana Anderson, FRUIT TESTER [address] [place], [address], [employer] 08/14/2023 10:58:53 influenza, unspecified formulation 4 completed IVELISSE armando, [employer] 04/19/2024 11:40:03 SARS-COV-2 (COVID-19) vaccine, UNSPECIFIED 4 completed IVELISSE armando, [employer] 04/19/2024 11:41:19 COVID-19, mRNA, LNP-S, PF, 100 mcg/0.5mL dose or 50 mcg/0.25mL dose 1 completed Not Available [facility] 10/12/2024 16:10:55 COVID-19, mRNA, LNP-S, PF, 100 mcg/0.5mL dose or 50 mcg/0.25mL dose 1 completed Not Available [facility] 10/12/2024 16:10:55 COVID-19, mRNA, LNP-S, PF, 100 mcg/0.5mL dose or 50 mcg/0.25mL dose 1 completed Not Available [facility] 10/12/2024 16:10:55 COVID-19, mRNA, LNP-S, PF, 100 mcg/0.5mL dose or 50 mcg/0.25mL dose 2 completed Not Available [facility] 10/12/2024 16:10:55 COVID-19, mRNA, LNP-S, bivalent, PF, 30 mcg/0.3 mL dose 2 completed Not Available [facility] 10/12/2024 16:10:55 Influenza, split virus, quadrivalent, PF 2 completed Not Available [facility] [facility] 10/12/2024 16:10:55 COVID-19, mRNA, LNP-S, PF, 50 mcg/0.5 mL 3 completed Not Available [facility] 10/12/2024 16:10:55 Influenza, split virus, quadrivalent, PF 3 completed Not Available [facility] 10/12/2024 16:10:55 Past Encounters Encounter ID Performer Location Encounter Start Date Encounter Closed Date Diagnosis/Indication Diagnosis SNOMED-CT Code Diagnosis ICD10 Code Diagnosis Note [id number] DONALD SETH-[address] [address] 09/06/2022 09:18:52 09/06/2022 09:48:17 Gouty arthritis of ankle and/or foot 234826141 M10.071 Gout 27223970 M10.9 [id number] Constance Estevez APRN [place] [id number] 06/17/2023 16:25:11 06/18/2023 08:23:34 Impacted cerumen in right ear [id number] 153995 H61.21 Acute righ t otitis media 300792196 H66.91 Complete antx. Use Debrox to soften the wax and RTC in 2 weeks for recheck and repeat attempt to irrigate canal free of wax. [id number] Constance [place] [id number] 06/22/2023 09:18:03 06/22/2023 09:54:17 Impacted cerumen in right ear [id number] 416533 H61.21 Right EAC remains impacted with wax and painful despite use of debrox, currette, and irrigation x 2 days in office. Will refer to ENT. Elevated blood-pressure reading without diagnosis of hypertension 918356242 R03.0 He presents with BP log today, his home BP is much lower than readings here and within goal averaging 127/72. [id number] Constance Estevez [place] [id number] 07/07/2023 09:15:25 07/07/2023 10:57:23 Fever 518485934 R50.9 Viral gastroenteritis 11 0229804 A08.4 Likely norovirus. Explained viral etiology and expected course. Encouraged fever control, hydration, BRAT diet, handwashin g. He is to RTC or go to ER for progressio n of sx. [id number] Oksana Anderson [place] [id number] 0 08/14/2023 08:25:44 08/14/2023 08:50:24 Active or passive immunization [id number] Z23 [id number]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
--- OUTSIDE RECORDS SUMMARY | 2024-11-27 14:06 | XMS_ITS | Data Portability ---
Author Organization [facility] ADMIN Address [address] [place] [address] Care Team Providers Care Swimming Pool Serviceperson Name Role Phone ASAF KNIGHT Primary Care Provider [phone] ASAF KNIGHT Referring Provider Assessment No assessment recorded. Plan of Treatment Reminders Order Date Submit Date Provider Last Modified By Organization Details Last Modified Time Details Appointments None record ed. Lab None record ed. Referral None record ed. Procedures None record ed. Surgeries None record ed. Imaging None record ed. Medication Orders None record ed. Patient TargetsNo targets recorded. Patient InstructionsNo instructions recorded. Reason for Referral None Reported. Results Created Date Observation Date Name Description Value Unit Range Abnormal Flag Note LastModifiedBy Organization Detail LastModifiedTime 07/22/19 24 07/22/2023 audio gram No observ ation record ed. [email or web address] Not Available 2023 11:46:25 Result Notes None recorded. Problems Name Problem SNOMED Code Status Onset Date Resolution Date Notes Provider Name and Address Organization Details Recorded Time Sensorineural hearing loss 47220021 Active 2023 JOVANI ISAAC, AUD [address] [facility], [place], [address] , [facility] [place] 11:42:38 Problem Notes None recorded. Procedures Surgical History Date Name Laterality Status Provider Name and Address Organization Details Recorded Time 07/22/19 24 Cerumen removal with microscope completed Brian Lee [facility] [place] 07/22/2023 11:02:16 Appendectomy completed Maru Man [facility] [place] 07/22/2023 10:34:53 Imaging Results None recorded. Procedure Notes None recorded. Medical Equipment None Reported. Allergies No known drug allergies Medications Name Sig Start Date Stop Date Status Note LastModified by Organization Details LastModified Time debrox drops 1 2oz INSTILL 5 DROPS INTO AFFECTED EAR(S) BY OTIC ROUTE 2 TIMES PER DAY 07/13 completed Not Available Not Available Not Available azithromyci n 250 mg tablet TAKE 2 TABLETS BY MOUTH ON DAY 1, THEN TAKE 1 TABLET DAILY ON DAYS 2-5 07/13 completed Not Available Not Available Not Available prednisone 10 mg tablets in a dose pack TAKE 6 TABLETS BY MOUTH ON DAY 1, THEN TAKE 5 TABLETS ON DAY 2, THEN TAKE 4 TABLETS ON DAY 3, THEN TAKE 3 TABLETS ON DAY 4, THEN TAKE 2 TABLETS ON DAY 5, THEN TAKE 1 TABLET ON DAY 6. TAKE ALL DOSES WITH FOOD. 07/13 completed Not Available Not Available Not Available benzonatate 100 mg capsule TAKE ONE CAPSULE BY MOUTH THREE TIMES DAILY NEEDED FOR cough -SWALLOW WHOLE. DO NOT CRUSH OR CHEW- 07/22 completed Not Available Not Available Not Available methylpredn isolone 4 mg tablets in a dose pack TAKE ACCORDING TO PACKAGE INSTRUCTI ONS --TAKE WITH FOOD-- -- FINISH ALL MEDICINE -- 07/13 completed Not Available Not Available Not Available colchicine 0.6 mg tablet TAKE 2 TABLETS BY MOUTH INITIALLY , THEN TAKE 1 TABLET IN AN HOUR. 07/22 completed Not Available Not Available Not Available ondansetron 4 mg disintegrat ing tablet Place 2 tablets twice a day by transling ual route as needed, for nausea. 07/22 completed Not Available Not Available Not Available amoxicillin 875 mg-potassiu m clavulanate 125 mg tablet Take 1 tablet every 12 hours by oral route with meal(s) for 10 days, for ear infection . 07/13 completed Not Available Not Available Not Available guaifenesin ER 600 mg tablet, extended release 12 hr TAKE TWO TABLETS BY MOUTH TWICE DAILY NEEDED FOR cough 07/22 completed Not Available Not Available Not Available Vitals Date Recorded Body weight Body mass index (BMI) Body height Body temperature Provider Name and Address Organization Details Last Updated DateTime 07/22/2023 50676.32 g 28.9 kg/m2 167.64 cm 96.6 [degF] Maru Man [place] - [facility] 07/22/2023 10:34:10 Social History None recorded. Functional Status None recorded. Mental Status None recorded. Family History Nothing Reported. Medical History Condition Response Allergies/Hayfever N Heart Problems N None N Heart Conditions N Emphysema N Migraines N Thyroid Problems N Glaucoma N Developmental Delay N Depression N Anemia N Immune System Disorder N Anesthesia Complications N Heart Attack ([place]) N Diabetes N Anxiety Disorder N Bleeding Disorder N Hearing Loss N Arthritis N Tuberculosis N Hyperlipidemia N Acid Reflux (GERD) N Cancer N Stroke N Asthma N Sleep Disorder N GERD/Reflux N Heart Disease N Headaches N Fibromyalgia N Hypertension N Speech Delay N Kidney Disease N Past Encounters Encounter ID Performer Location Encounter Start Date Encounter Closed Date Diagnosis/Indication Diagnosis SNOMED-CT Code Diagnosis ICD10 Code Diagnosis Note [id number] Ashley Kong MD [facility] [place] [id number] 07/22/2023 10:13:55 07/22/2023 11:19:00 Impacted cerumen of bilateral ears [id number] 334976 H61.23 Cerumen removed bilaterall y today in the office. Encouraged patient to use a drop of baby oil in each ear 2-3 times a week to keep cerumen soft. Will see the patient back as needed. 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 [id number] SAMANTHA WARNER [facility] [address] [place] [id number] 07/22/2023 11:05:12 07/22/2023 11:15:04 Sensorineural hearing loss 41747356 H90.3 Health Concerns Section Related Observation LastModified by Organization Detai ls LastModified Time None Recorded Concern Status LastModified by Organization Details LastModified Time None Recorded Advance Directives Directive None Recorded Payers Insurance Date Sequence Insurance Name Policy Number Policy Hall Covered Member ID Hall Member ID Guarantor Name 06/25/2024 2 [place] [facility] - FFS/TRADITIO NAL Kemar Garcias [id number] Kemar Garcias 12/19/2023 1 MED[place]ARE[place]ARE[place] Kemar Garcias [id number] Kemar Garcias Notes Date Note Type Note Provider Name and Address Organization Details Recorded Time 07/22/2023 text/html 07/22/23- patient is here for impacted cerumen, he is having some hearing loss from the right ear. Has had his ears flushed at pcp office. Hasn't had a hearing test. Has been a [employer] most of his life. Denies any ringing or noise in either ear. He would like to have his hearing checked today. Ashley Kong MD [address], [place], [address], [facility] [place] 07/22/2023 11:32:35 07/22/2023 text/html Mr. Garcias was se en today for an audiologic evaluation due to long-standing hearing loss bilaterally per Dr. Ashley Kong MD. Mr. Garcias reports difficulty hearing well in background noise, however, he denies any significant communication disruptions. He denies tinnitus, dizziness, drainage, aural fullness/pressure, and ear pain. Excessive noise exposure includes agricultural noise. Otoscopic inspection was unremarkable bilaterally following cerumen removal by Dr. Kong. Audiometric testing revealed a mild, sloping to moderate, high freq SNHL bilaterally with good word rec scores. 1-Discussed findings with Mr. Garcias and Dr. Kong. 2-F/u with Dr. Kong this date. 3-F/u hearing testing annually to monitor. 4-Mr. Garcias was not interested in hearing aids at this time. JOVANI ISAAC, SAMANTHA [address], [place], [address], [facility] [place] 07/22/2023 11:46:31
--- OUTSIDE RECORDS SUMMARY | 2024-11-27 14:07 | XMS_ITS | Data Portability ---
Author Organization [place] - RUSTY Hinds CAZADERO CLOSED Address [address] [facility] [address] [place] [address] Assessment Encounter Date Assessment Date Assessment LastModified by Organization Details LastModified Time 05/13/2018 05/13/2018 We discussed the significance of elevated PSA. I explained that an elevated PSA does not necessarily mean the presence of prostate cancer, but that it should be further investigated with either a prostate ultrasound and biopsy or a repeat PSA. I explain the significance of a rising PSA, and the fact that there is not necessarily a certain value that would be considered normal in the face of an rising PSA. We discussed possible etiologies such as prostate cancer, infection, inflammation, benign prostatic hyperplasia. We discussed the need for prostate biopsy to rule out prostate cancer. Patient voices understanding. The risks, benefits, alternatives to procedure were discussed with the patient. PSA elevation may be secondary to recent infection. Recheck PSA in 6 weeks. Add Flomax. [email or web address] Not available 05/26/2018 11:56:45 06/24/2018 06/24/2018 PSA down to normal range. Elevation likely secondary to UTI. [email or web address] Not available 06/24/2018 14:23:55 Plan of Treatment Reminders Order Date Submit Date Provider Last Modified By Organization Details Last Modified Time Details Appointments None recorded. Lab urinalysi s, dipstick, auto 2018 019 [email or web address] [id number] [facility] Services With [facility], [address] [place] [address] Dr Jacques, [place], [address], 9 14:23:56 urinalysi s, dipstick, auto 2017 018 [email or web address] 4 [facility] Extended Services With [facility], [address] [place] [address] Dr Jacques, [place], [address], 8 17:00:28 Referral None recorded. Procedures None recorded. Surgeries None recorded. Imaging None recorded. Medication Orders Flomax 0.4 mg capsule 2017 018 INTERFACE [facility], [address] [facility], [place], [address], 8 17:00:32 Patient TargetsNo targets recorded. Patient Instructions Encounter Date Encounter Id Patient Instructions Last Modified By Organization Details Last Modified Time 05/13/2018 [id number] prostate biopsy: about this test [email or web address] Not available 05/26/2018 11:56:45 healthy together [email or web address] Not availab le 05/13/2018 17:00:28 learning about high blood pressure [email or web address] Not available 05/13/2018 17:00:28 Reason for Referral None Reported. Results Created Date Observation Date Name Description Value Unit Range Abnormal Flag Note LastModifiedBy Organization Detail LastModifiedTime 06/24/19 19 06/24/2018 urina lysis , dipst ick, auto Unknown Analyte Yellow Not Available [facility] Extended Services With [address] Jacques, [place], [address], 06/24/2018 14:13:35 06/24/19 19 06/24/2018 urina lysis , dipst ick, auto Unknown Analyte Clear Not Available [facility] Extended Services With [address] Jacques, [place], [address], 06/24/2018 14:13:35 06/24/1906/24/2018 urina lysis , dipst ick, auto Unknown Analyte 1.010 Not Available [facility] Extended Services With [address] [place], [address], 06/24/2018 14:13:35 06/24/19 19 06/24/2018 urina lysis , dipst ick, auto Unknown Analyte 1.003 - 1.035 Not Available [facility] Extended Services With [address] Jacques, [place], [address], 06/24/2018 14:13:35 06/24/19 19 06/24/2018 urina lysis , dipst ick, auto Unknown Analyte 6.5 Not Available [facility] Extended Services With [address] [place], [address], 06/24/2018 14:13:35 06/24/19 19 06/24/2018 urina lysis , dipst ick, auto Unknown Analyte 5.0 - 8.0 Not Available [facility] Extended Services With [address] [place], [address], 06/24/2018 14:13:35 06/24/19 19 06/24/2018 urina lysis , dipst ick, auto Unknown Analyte Negati ve Not Available [facility] Extended Services With [address] [place], [address], 06/24/2018 14:13:35 06/24/19 19 06/24/2018 urina lysis , dipst ick, auto Unknown Analyte Negati ve Not Available [facility] Extended Services With [address] [place], [address], 06/24/2018 14:13:35 06/24/19 19 06/24/2018 urina lysis , dipst ick, auto Unknown Analyte Negati ve Not Available [facility] Extended Services With [address] [place], [address], 06/24/2018 14:13:35 06/24/19 19 06/24/2018 urina lysis , dipst ick, auto Unknown Analyte Negati ve Not Available [facility] Extended Services With [address] [place], [address], 06/24/2018 14:13:35 06/24/1906/24/2018 urina lysis , dipst ick, auto Unknown Analyte Negtiv e Not Available [facility] Extended Services With [address] [place], [address], 06/24/2018 14:13:35 06/24/19 19 06/24/2018 urina lysis , dipst ick, auto Unknown Analyte Negati ve - Trace Not Available [facility] Extended Services With [address] [place], [address], 06/24/2018 14:13:35 06/24/19 19 06/24/2018 urina lysis , dipst ick, auto Unknown Analyte Normal Not Available [facility] Extended Services With [address] [place], [address], 06/24/2018 14:13:35 06/24/19 19 06/24/2018 urina lysis , dipst ick, auto Unknown Analyte Normal Not Available [facility] Extended Services With [address] [place], [address], 06/24/2018 14:13:35 06/24/1906/24/2018 urina lysis , dipst ick, auto Unknown Analyte Negati ve Not Available [facility] Extended Services With [address] [place], [address], 06/24/2018 14:13:35 06/24/1906/24/2018 urina lysis , dipst ick, auto Unknown Analyte Negati ve Not Available [facility] Extended Services With [address] [place], [address], 06/24/2018 14:13:35 06/24/19 19 06/24/2018 urina lysis , dipst ick, auto Unknown Analyte Normal Not Available [facility] Extended Services With [address] Jacques, [place], [address], 06/24/2018 14:13:35 06/24/19 19 06/24/2018 urina lysis , dipst ick, auto Unknown Analyte Normal - 1mg/dl Not Available [facility] Extended Services With [address] Jacques, [place], [address], 06/24/2018 14:13:35 06/24/19 19 06/24/2018 urina lysis , dipst ick, auto Unknown Analyte Negati ve Not Available [facility] Extended Services With [address] [place], [address], 06/24/2018 14:13:35 06/24/19 19 06/24/2018 urina lysis , dipst ick, auto Unknown Analyte Negati ve Not Available [facility] Extended Services With [address] Jacques, [place], [address], 06/24/2018 14:13:35 06/24/19 19 06/24/2018 urina lysis , dipst ick, auto Unknown Analyte Negati ve Not Available [facility] Extended Services With [address] [place], [address], 06/24/2018 14:13:35 06/24/1906/24/2018 urina lysis , dipst ick, auto Unknown Analyte Negati ve Not Available [facility] Extended Services With [address] [place], [address], 06/24/2018 14:13:35 06/24/19 19 06/24/2018 urina lysis , dipst ick, auto Unknown Analyte Clean Catch Not Available [facility] Extended Services With [address] Jacques, [place], [address], 06/24/2018 14:13:35 06/24/19 19 06/24/2018 urina lysis , dipst ick, auto Unknown Analyte Automa gamal Not Available [facility] Extended Services With [address] [place], [address], 06/24/2018 14:13:35 05/13/20 18 05/13/2018 urina lysis , dipst ick, auto Unknown Analyte Yellow Not Available [facility] Extended Services With [address] [place], [address], 05/13/2018 16:51:58 05/13/20 18 05/13/2018 urina lysis , dipst ick, auto Unknown Analyte Clear Not Available [facility] Extended Services With [address] [place], [address], 05/13/2018 16:51:58 05/13/20 18 05/13/2018 urina lysis , dipst ick, auto Unknown Analyte 1.005 Not Available [facility] Extended Services With [address] [place], [address], 05/13/2018 16:51:58 05/13/20 18 05/13/2018 urina lysis , dipst ick, auto Unknown Analyte 1.003 - 1.035 Not Available [facility] Extended Services With [address] [place], [address], 05/13/2018 16:51:58 05/13/20 18 05/13/2018 urina lysis , dipst ick, auto Unknown Analyte 6.5 Not Available [facility] Extended Services With [address] [place], [address], 05/13/2018 16:51:58 05/13/20 18 05/13/2018 urina lysis , dipst ick, auto Unknown Analyte 5.0 - 8.0 Not Available [facility] Extended Services With [address] Jacques, [place], [address], 05/13/2018 16:51:58 05/13/20 18 05/13/2018 urina lysis , dipst ick, auto Unknown Analyte Negati ve Not Available [facility] Extended Services With [address] Jacques, [place], [address], 05/13/2018 16:51:58 05/13/20 18 05/13/2018 urina lysis , dipst ick, auto Unknown Analyte Negati ve Not Available [facility] Extended Services With [address] Jacques, [place], [address], 05/13/2018 16:51:58 05/13/20 18 05/13/2018 urina lysis , dipst ick, auto Unknown Analyte Negati ve Not Available [facility] Extended Services With [address] Jacques, [place], [address], 05/13/2018 16:51:58 05/13/20 18 05/13/2018 urina lysis , dipst ick, auto Unknown Analyte Negati ve Not Available [facility] Extended Services With [address] [place], [address], 05/13/2018 16:51:58 05/13/20 18 05/13/2018 urina lysis , dipst ick, auto Unknown Analyte Negtiv e Not Available [facility] Extended Services With [address] [place], [address], 05/13/2018 16:51:58 05/13/20 18 05/13/2018 urina lysis , dipst ick, auto Unknown Analyte Negati ve - Trace Not Available [facility] Extended Services With [address] Jacques, [place], [address], 05/13/2018 16:51:58 05/13/20 18 05/13/2018 urina lysis , dipst ick, auto Unknown Analyte Normal Not Available [facility] Extended Services With [address] Jacques, [place], [address], 05/13/2018 16:51:58 05/13/20 18 05/13/2018 urina lysis , dipst ick, auto Unknown Analyte Normal Not Available [facility] Extended Services With [address] [place], [address], 05/13/2018 16:51:58 05/13/20 18 05/13/2018 urina lysis , dipst ick, auto Unknown Analyte Negati ve Not Available [facility] Extended Services With [address] Jacques, [place], [address], 05/13/2018 16:51:58 05/13/20 18 05/13/2018 urina lysis , dipst ick, auto Unknown Analyte Negati ve Not Available [facility] Extended Services With [address] Jacques, [place], [address], 05/13/2018 16:51:58 05/13/20 18 05/13/2018 urina lysis , dipst ick, auto Unknown Analyte Normal Not Available [facility] Extended Services With [address] Jacques, [place], [address], 05/13/2018 16:51:58 05/13/20 18 05/13/2018 urina lysis , dipst ick, auto Unknown Analyte Normal - 1mg/dl Not Available [facility] Extended Services With [address] Jacques, [place], [address], 05/13/2018 16:51:58 05/13/20 18 05/13/2018 urina lysis , dipst ick, auto Unknown Analyte Negati ve Not Available [facility] Extended Services With [address] Jacques, [place], [address], 05/13/2018 16:51:58 05/13/20 18 05/13/2018 urina lysis , dipst ick, auto Unknown Analyte Negati ve Not Available [facility] Extended Services With [address] Jacques, [place], [address], 05/13/2018 16:51:58 05/13/20 18 05/13/2018 urina lysis , dipst ick, auto Unknown Analyte Negati ve Not Available [facility] Extended Services With [address] Jacques, [place], [address], 05/13/2018 16:51:58 05/13/20 18 05/13/2018 urina lysis , dipst ick, auto Unknown Analyte Negati ve Not Available [facility] Extended Services With [address] [place], [address], 05/13/2018 16:51:58 05/13/20 18 05/13/2018 urina lysis , dipst ick, auto Unknown Analyte Clean Catch Not Available [facility] Extended Services With [address] [place], [address], 05/13/2018 16:51:58 05/13/20 18 05/13/2018 urina lysis , dipst ick, auto Unknown Analyte Automa gamal Not Available [facility] Extended Services With [address] [place], [address], 05/13/2018 16:51:58 05/06/20 18 04/29/2018 CT, abdom en + pelvi s, w/o contr ast No observ ation record ed. [email or web address] [facility] Centralized Scheduling [address] , [place], [address], 05/06/2018 16:11:16 Result Notes None recorded. Problems Name Problem SNOMED Code Status Onset Date Resolution Date Notes Provider Name and Address Organization Details Recorded Time Prostate specific antigen above reference range 773496112 Active 018 [facility] 8 16:49:42 Problem Notes None recorded. Procedures Surgical History Date Name Laterality Status Provider Name and Address Organization Details Recorded Time [facility] completed [facility] 05/13/2018 16:50:19 [facility] through wrist [facility] 16:50:42 Imaging Results None recorded. Procedure Notes None recorded. Medical Equipment None Reported. Allergies No known drug allergies Medications Name Sig Start Date Stop Date Status Note LastModified by Organization Details LastModified Time Flomax 0.4 mg capsule Take 1 capsule every day by oral route for 90 days. 2017 active Not Available Not Available Not Avai lable One A Day tablet Take by oral route. active Not Available Not Available No t Available Bactrim DS 06/24 completed Not Available Not Available Not Available Probiotic active Not Available Not Gemini ilable Not Available krill oil active Not Available Not Gemini ilable Not Available Vitals Date Recorded Body height Body mass index (BMI) Body weight Systolic blood pressure Diastolic blood pressure Provider Name and Address Organization Details Last Updated DateTime 06/24/2018 167.64 cm 28.2 kg/m2 95824.66 g 122 mm[Hg] 80 mm[Hg] Raquel Moran [facility] 9 14:11:16 Date Recorded Body height Body mass index (BMI) Body weight Provider Name and Address Organization Details Last Updated DateTime 05/13/2018 167.64 cm 28.2 kg/m2 17678.66 g Raquel Moran [facility] 05/13/2018 16:48:21 Social History Question Answer Notes LastModified by Organizat ion Details LastModified Time Tobacco Smoking Status Former Smoker Raquel Lantiguat [facility] 05/13/2018 16:50:05 How Much Tobacco Do You Chew? None Information not available 06/24/2018 Marital Status angela Informatio n not available 05/13/2018 What Was The Date Of Your Most Recent Tobacco Screening? 06/24/2018 Information n ot available 07/19/2019 Sex: Unknown Functional Status Question Answer Note LastModified by Organization D etails LastModified Time What is your level of alcohol consumption? None Information not available 05/13/2018 Mental Status None recorded. Family History Relationship Description Onset Age of this Age Resolved Age Notes LastModified by Organization Details LastModified Time Mother Diabetes mellitus [email or web address] Not available 2017 16:49:52 Sister Family history of malignant neoplasm [email or web address] Not available 2017 16:49:57 Medical History Condition Response Kidney Stones Y Kidney Disease Y Past Encounters Encounter ID Performer Location Encounter Start Date Encounter Closed Date Diagnosis/Indication Diagnosis SNOMED-CT Code Diagnosis ICD10 Code Diagnosis Note [id number] REYNA ARMAS MD [facility] [address] [place] [address] ,[place] [address] 05/13/2018 15:26:25 05/26/2018 12:59:22 Benign prostatic hyperplasia with outflow obstruction 858715672 N40.1 Prostate s pecific antigen above reference range 003034648 R97.20 [id number] REYNA ARMAS MD [facility] [address] [place] [address] 06/24/2018 13:53:11 06/25/2018 07:43:14 Prostate specific antigen above reference range 941014183 R97.20 Benign pro static hyperplasia with outflow obstruction 539484610 N40.1 Health Concerns Section Related Observation LastModified by Organization Detai ls LastModified Time None Recorded Concern Status LastModified by Organization Details LastModified Time None Recorded Advance Directives Directive None Recorded Payers Insurance Date Sequence Insurance Name Policy Number Policy Hall Covered Member ID Hall Member ID Guarantor Name 04/25/2020 1 [place] Kemar Garcias [id number] Kemar Garcias Notes Date Note Type Note Provider Name and Address Organization Details Recorded Time 05/13/2018 text/html 88-year-old male in the office for consultation and evaluation of raised PSA. PSA from 05/04/18 7.6. He had recent UTI. No family history of prostate cancer. On Bactrim. He takes no BPH medications. He voids every 1-2 hours with nocturia one to 2 times nightly. Occasional hesitancy. He does have urgency. No hematuria or dysuria. REYNA ARMAS MD [address] [place] [address] [place], [address], [facility] 05/26/2018 11:57:11 06/24/2018 text/html 58-year-old male in the office for follow-up evaluation of raised PSA. PSA from 05/04/18 was 7.6. He had UTI prior to that. He has no family history of prostate cancer. He was initiated on tamsulosin at last office visit. PSA from 06/18/18 was down to 0.8. He no longer has nocturia. No urgency. No hematuria or dysuria. REYNA ARMAS MD [facility] [place], [address], [facility] 06/24/2018 14:24:55
[2024-11-27 14:08] VITALS: BP 171/99; PULSE 71; RESP 16; TEMP 37.1; O2SAT 97; BMI 29.0
--- NOTE | 2024-11-27 14:18 | [facility].EDGENADL ---
Discharge Plan Disposition Patient Disposition: Home, Self-Care Referrals Follow up/Referrals: Constance Estevez [Primary Care Provider, Medical] - See instructions Activity Restrictions/Add. Instructions Additional Instructions/Restrictions: At this time it was felt you are safe to be discharged home. If new or worsening symptoms please do not hesitate to return the emergency department. As discussed please apply the erythromycin ointment to your right eye 3 times a day for 5 days. Tomorrow morning call my eye doctor at [phone] and say that you were seen in the emergency department with Dr. Jiménez and he wishes for you to see Dr. Calderon as soon as possible for continued evaluation. Clinical Impressions Clinical Impression: Acute foreign body of cornea Print Language Print Language: Vietnamese Discharge ED Provider: Cheo Jiménez General Adult HPI General Chief complaint: Eye Problems Stated complaint: AO-11/26-Poss metal in R eye Time Seen by Provider: 11/27/24 14:01 Mode of Arrival: Ambulatory Source of Information: Patient Description of Symptoms (Recalled from ER Triage Doc. 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 Pt states he has periodic eye discomfort. History of Present Illness HPI narrative: Patient is 64-year-old male who presents emergency department for concern for a piece of metal in his left eye. He was angled grinding a lumber blade yesterday when he felt foreign body sensation in his right eye. He has also inadvertently hit himself in the right eye with a pair of glasses which is resulted in bloody redness over his sclera. No other acute complaints at this time. Tdap not up-to-date. Please note that above description of symptoms, in this electronic medical record under categorization of recalled from ER triage doctor by RN are reflective of an initial nursing assessment, however, is not reflective of my full history and physical exam that was personally taken and clarified. Consequentially, this preceding description of symptoms, which may include the patient's categorized chief complaint in the EMR, do not reflect my personal clinical impression, and the ultimate description of history of present illness and patient stated complaints should be deferred to this section of the note. Unless stated otherwise or congruent with this section of the note, additional signs, symptoms, or incongruence should be interpreted as inaccurate with my clinical impression. Related Data Allergies Allergy/AdvReac Type Severity Reaction Status Date / Time No Known Allergies Allergy Verified 07/09/23 09:[address] [facility] Disclaimer: The information contained in this section may have been updated after the patient was seen, as this information can be updated by other users. Medical History (Updated 11/27/24 @ 14:18 by Cheo Jiménez MD) Hand amputee Surgical History Hx of appendectomy Social History (Updated 07/13/24 @ 11:11 by Braulio Conway CRNA) Smoking Status: Smoker, status unknown alcohol intake: never substance use type: denies use current occupational status: employed Travel in the last 8 weeks?: None Have you lived/traveled outside [place] in past 30 days?: No Contact w/someone who lives/traveled outside [place] past 30 days?: No Exposure to someone with infectious disease in past 14 days?: No Do you have a fever (greater than 100.4 F or 38 C)?: No Have you tested positive for COVID-19?: No Exposed to someone with COVID-19 in past 14 days?: No Do you have a sore throat?: No Do you have a cough?: No Do you have any weakness?: No Do you have any diarrhea?: No Are you experiencing any unusual bleeding?: No Do you have any muscle aches/pain?: No Do you have any abdominal pain?: No Are you experiencing loss of taste or smell?: No Other Medical History Have you received the Flu Vaccine for this season: No Have you received the Pneumonia Vaccine: No ROS Obtained: Yes Systems reviewed as appropriate & no additional complaints except as documented Physical Exam General General appearance: alert and in no apparent distress Head Head exam: atraumatic and normocephalic Eye Eye exam: Present EOMI and other (Subconjunctival hemorrhage on the right eye, metallic foreign body embedded in the cornea overlying the field of vision. Right pupil normal.) ENT ENT exam: Present mucous membranes moist Neck Neck exam: Present normal inspection Chest Chest inspection: Present normal inspection and symmetric chest wall rise Respiratory Respiratory exam: Absent respiratory distress Cardiovascular Cardiovascular exam: Present regular rate and normal rhythm Extremities Exam Extremities exam: Present normal inspection Neurological Exam Neurological exam: Present alert Psychiatric Psychiatric exam: Present normal affect Skin Skin exam: Present warm and dry Medical Decision Making Medical Records Screening: Per USPSTF and CDC recommendations, given the prevalence of disease in our region, it is our hospital?s policy to screen for HIV and viral Hepatitis for all patients aged 18 and over and those with ongoing risk factors. Chuck Inquiry Pt receiving controlled substance: No Vital Signs: 11/27/24 14:08 Temperature 98.8 F Temperature Source Oral Pulse Rate [Left] 71 Respiratory Rate 16 Blood Pressure [Right Arm] 171/99 H Blood Pressure Mean [Right Arm] 123 Blood Pressure Source [Right Arm] Automatic Cuff 02 Sat by Pulse Oximetry 97 Oxygen Delivery Method Room Air Medical Decision Narrative: In summary patient is a 64-year-old male with past medical history described above who presents emergency department for evaluation of concern for metallic foreign body. Patient is hemodynamically stable nontoxic-appearing upon arrival, afebrile. Based on history and physical exam patient has traumatic subconjunctival hemorrhage and there is also an associated punctate metallic foreign body embedded in the cornea. Fluorescein exam shows no uptake, Flor sign negative. Given this I have no concern for globe disruption. Tdap was updated. Foreign body was removed with success. Patient tolerated the procedure well and is appropriate for discharge at this time will follow-up with an eye doctor on outpatient basis over the coming days and was discharged with a erythromycin ointment and was given return precautions. Procedure: Procedure performed was fluorescein exam and ocular foreign body removal. Procedure performed by Cheo Jiménez. Topical tetracaine was applied with good effect and the right eye was examined with fluorescein, no uptake on Persaud lamp exam. Foreign body overlying the cornea was identified on gross examination and was removed with 18-gauge needle after multiple pieces from the same punctate area were removed with the 18-gauge bevel needle pointed out at all times. Patient tolerated the procedure well there were no immediate complications. Treatment Supervisor disclaimer Much of this encounter note is an electronic carding doubler spoken language to printed text. Electronic carding doubler of the spoken language may permit errors. Although I have reviewed the note, some errors may still exist. Critical Care Critical Care Time Critical Care Time: No
[2024-11-27] MEDS: TET/DIPHTH/PERT-ADULT 0.5ML SYRINGE 0.5 ML IM (14:23)
[2024-11-27 14:26] VITALS: BP 171/99; PULSE 71; RESP 18; TEMP 37.1; O2SAT 97
[2024-11-27] MEDS: ERYTHROMYCIN BASE 3.5 GM OINT...G. OP (14:32)
[2024-11-27] MEDS: TETRACAINE 0.5% OPTH SOL 15ML OP (14:32)
[2024-11-27] MEDS: FLUORESCEIN SODIUM 1MG STRIP 1 MG OP (14:32)
== END 2024-11-27 14:36 | disposition home or self-care (01) ==
PROVIDERS: Emergency Provider Emergency Medicine; PCP Nurse Practitioner Family
DX: T15.01XA Foreign body in cornea, right eye, initial encounter (principal); W44.8XXA Other foreign body entering into or through a natural orifice, initial encounter
CPT/HCPCS: 65222; 90471; 90715; 99284